=== PATIENT | male | born 1970 | race Caucasian/White ===

== ENCOUNTER 2018-07-15 09:21 | Emergency (ER) | payer MEDICAID ==
[~2018-07-15] VITALS: Ht 182.9 cm; Wt 127.0 kg
[~2018-07-15 09:21] MED LIST: DIAZ5TAB PO; HYDR-4353 PO; IBUP-1574 PO; NO HOME MEDS
[2018-07-15] MEDS ORDERED: HYDR-4353 PO (10:16)
[2018-07-15 10:50] VITALS: BP 158/102
== END 2018-07-15 10:40 | disposition home or self-care (01) ==
LOC: ER 09:22
DX: M54.41 Lumbago with sciatica, right side (principal); G89.29 Other chronic pain; F12.90 Cannabis use, unspecified, uncomplicated; Z79.899 Other long term (current) drug therapy; Z98.890 Other specified postprocedural states
CPT/HCPCS: 99283

== ENCOUNTER 2020-01-28 09:51 | Emergency (ER) | payer MEDICAID, OTHER ==
[~2020-01-28] VITALS: Ht 182.9 cm; Wt 109.0 kg
[2020-01-28 10:01] VITALS: BP 155/108
[2020-01-28] MEDS ORDERED: HYDROcodone/acetaminophen 5mg/325mg tablet PO ONE (10:25)
[2020-01-28] MEDS ORDERED: ondansetron 4mg rapidly disintigrating tab PO ONE (10:25)
[2020-01-28] MEDS ORDERED: CYCL-1 PO (10:53)
[2020-01-28] MEDS ORDERED: IBUP-1984 PO (10:53)
== END 2020-01-28 11:38 | disposition home or self-care (01) ==
LOC: ER 09:51
DX: M25.551 Pain in right hip (principal); M79.651 Pain in right thigh; G89.29 Other chronic pain; F12.90 Cannabis use, unspecified, uncomplicated; Z98.890 Other specified postprocedural states; Z72.89 Other problems related to lifestyle; Z79.899 Other long term (current) drug therapy
CPT/HCPCS: 73502; 99284

== ENCOUNTER 2020-07-18 14:38 | Emergency (ER) | payer MEDICAID ==
[~2020-07-18] VITALS: Ht 182.9 cm; Wt 130.0 kg
[~2020-07-18 14:38] MED LIST changes: +CYCL-1 PO
[2020-07-18 14:53] VITALS: BP 137/112
[2020-07-19] MEDS ORDERED: NAPR-56 PO (10:44)
[2020-07-19] MEDS ORDERED: CYCL-1 PO (10:44)
== END 2020-07-18 17:52 | disposition home or self-care (01) ==
LOC: ER 14:39
DX: S29.012A Strain of muscle and tendon of back wall of thorax, initial encounter (principal); K43.9 Ventral hernia without obstruction or gangrene; G89.29 Other chronic pain; F12.90 Cannabis use, unspecified, uncomplicated; Z72.89 Other problems related to lifestyle; Z98.890 Other specified postprocedural states; Z79.899 Other long term (current) drug therapy; X58.XXXA Exposure to other specified factors, initial encounter; Y93.89 Activity, other specified; Y92.89 Other specified places as the place of occurrence of the external cause; Y99.8 Other external cause status
CPT/HCPCS: 72074; 76705; 99284

== ENCOUNTER 2020-07-19 09:55 | Emergency (ER) | payer MEDICAID ==
[~2020-07-19] VITALS: Ht 182.9 cm; Wt 130.0 kg
[2020-07-19] MEDS ORDERED: ketorolac trometh inj. 60 MG/2 ML VIAL IM ONE (10:15)
[2020-07-19] MEDS ORDERED: oxyCODONE/APAP 10/325mg tablet PO ONE (10:15)
[2020-07-19] MEDS ORDERED: orphenadrine citrate 60mg/2ml inj. IM ONE (10:15)
[2020-07-19] MEDS ORDERED: NAPR-56 PO (10:44)
[2020-07-19] MEDS ORDERED: CYCL-1 PO (10:44)
[2020-07-19 11:29] VITALS: BP 143/105
== END 2020-07-19 11:31 | disposition home or self-care (01) ==
LOC: ER 09:56
DX: S33.5XXA Sprain of ligaments of lumbar spine, initial encounter (principal); G89.29 Other chronic pain; Z72.89 Other problems related to lifestyle; Z79.899 Other long term (current) drug therapy; X50.0XXA Overexertion from strenuous movement or load, initial encounter; Y93.89 Activity, other specified; Y92.89 Other specified places as the place of occurrence of the external cause; Y99.8 Other external cause status; F12.90 Cannabis use, unspecified, uncomplicated
CPT/HCPCS: 96372; 99284; J1885; J2360

== ENCOUNTER 2020-10-12 12:05 | Emergency (ER) | payer MEDICAID ==
[~2020-10-12] VITALS: Ht 182.9 cm; Wt 130.0 kg
[2020-10-12 12:39] LABS: BASOPHILS % (AUTO) 0.9 % (0-1); EOSINOPHILS % (AUTO) 0.8 % (0-6); HEMATOCRIT 50.7 % (42.0-52.0); HEMOGLOBIN 17.4 g/dl (14.0-17.9); LYMPHOCYTES # (AUTO) 1.4 X10'3 (1.1-4.8); LYMPHOCYTES % (AUTO) 30.6 % (21-51); MEAN CORPUSCULAR HEMOGLOBIN 33.4 PG (27.0-31.0); MEAN CORPUSCULAR HGB CONC 34.2 g/dL (33.0-36.5); MEAN CORPUSCULAR VOLUME 97.6 FL (78-98); MEAN PLATELET VOLUME 7.2 FL (7.4-10.4); MONOCYTES # (AUTO) 0.5 X10'3 (0-0.9); MONOCYTES % (AUTO) 11.2 % (2-12); NEUTROPHILS # (AUTO) 2.7 X10'3 (1.8-7.7); NEUTROPHILS % (AUTO) 56.5 % (42-75); PLATELET COUNT 273 X10'3 (140-440); RED CELL DISTRIBUTION WIDTH 12.6 % (11.5-14.5); WHITE BLOOD COUNT 4.7 X10'3 (4.5-11.0)
[2020-10-12 13:00] LABS: ALANINE AMINOTRANSFERASE 315 U/L (12-78); ALBUMIN 3.4 G/DL (3.4-5.0); ALBUMIN/GLOBULIN RATIO 0.9 (1.1-1.5); ALKALINE PHOSPHATASE 79 IU/L (46-116); ANION GAP 12 (8-16); ASPARTATE AMINO TRANSFERASE 407 U/L (10-37); BILIRUBIN,TOTAL 0.7 MG/DL (0.1-1.0); BLOOD UREA NITROGEN 12 MG/DL (7-18); BUN/CREATININE RATIO 13.6 (5.4-32.0); CALCIUM 8.6 MG/DL (8.5-10.1); CHLORIDE 103 MMOL/L (99-107); CREATININE 0.88 MG/DL (0.60-1.10); GLUCOSE 111 MG/DL (70-104); SODIUM 138 MMOL/L (135-145); TOTAL CARBON DIOXIDE 23.1 MMOL/L (24-32); TOTAL PROTEIN 7.2 G/DL (6.4-8.2); eGFR > 90 ML/MIN
[2020-10-12] MEDS ORDERED: albuterol 2.5 MG/3 ML nebule NEB ONE (13:30)
[2020-10-12] MEDS ORDERED: albuterol 2.5 MG/3 ML nebule ONE (13:50)
[2020-10-12 14:43] VITALS: BP 161/113
== END 2020-10-12 14:45 | disposition home or self-care (01) ==
LOC: ER 12:05
DX: R74.8 Abnormal levels of other serum enzymes (principal); R06.02 Shortness of breath; F10.10 Alcohol abuse, uncomplicated; G89.29 Other chronic pain; F12.90 Cannabis use, unspecified, uncomplicated; Z98.890 Other specified postprocedural states; Z79.899 Other long term (current) drug therapy; Y90.9 Presence of alcohol in blood, level not specified
CPT/HCPCS: 36415; 71045; 80053; 83880; 84484; 85025; 93005; 94640; 94760; 99285

== ENCOUNTER 2020-12-29 12:58 | Emergency (ER) | payer MEDICAID ==
--- NOTE | 2020-12-29 14:10 | NUR ---
Second call, not in lobby
--- NOTE | 2020-12-29 14:26 | NUR ---
Third call not in lobby
== END 2020-12-29 17:49 | disposition left against medical advice (07) ==
LOC: ER 12:59
DX: R11.10 Vomiting, unspecified (principal); Z53.21 Procedure and treatment not carried out due to patient leaving prior to being seen by health care provider

== ENCOUNTER 2021-12-07 16:58 | Emergency (ER) | payer MEDICAID ==
[~2021-12-07] VITALS: Ht 182.9 cm; Wt 113.6 kg
[2021-12-07 17:38] LABS: BASOPHILS % (AUTO) 0.5 % (0-1); EOSINOPHILS # (AUTO) 0.1 X10'3 (0-0.9); EOSINOPHILS % (AUTO) 0.8 % (0-6); HEMATOCRIT 43.6 % (42.0-52.0); HEMOGLOBIN 14.9 g/dl (14.0-17.9); LYMPHOCYTES # (AUTO) 1.5 X10'3 (1.1-4.8); LYMPHOCYTES % (AUTO) 17.5 % (21-51); MEAN CORPUSCULAR HGB CONC 34.2 g/dL (33.0-36.5); MEAN CORPUSCULAR VOLUME 99.6 FL (78-98); MONOCYTES # (AUTO) 0.9 X10'3 (0-0.9); MONOCYTES % (AUTO) 10.9 % (2-12); NEUTROPHILS % (AUTO) 70.3 % (42-75); PLATELET COUNT 166 X10'3 (140-440); RED BLOOD COUNT 4.38 X10'6 (4.70-6.10); RED CELL DISTRIBUTION WIDTH 12.7 % (11.5-14.5); WHITE BLOOD COUNT 8.5 X10'3 (4.5-11.0)
[2021-12-07 17:57] LABS: ALANINE AMINOTRANSFERASE 72 U/L (12-78); ALBUMIN 3.7 G/DL (3.4-5.0); ALKALINE PHOSPHATASE 85 IU/L (46-116); ANION GAP 14 (8-16); ASPARTATE AMINO TRANSFERASE 122 U/L (10-37); BILIRUBIN,TOTAL 1.6 MG/DL (0.1-1.0); BLOOD UREA NITROGEN 5 MG/DL (7-18); BUN/CREATININE RATIO 6.8 (5.4-32.0); CALCIUM 8.5 MG/DL (8.5-10.1); CHLORIDE 99 MMOL/L (99-107); CREATININE 0.73 MG/DL (0.60-1.10); GLUCOSE 109 MG/DL (70-104); SODIUM 136 MMOL/L (135-145); TOTAL PROTEIN 7.5 G/DL (6.4-8.2); eGFR > 90 ML/MIN
[2021-12-07 18:00] LABS: POTASSIUM 2.9 MMOL/L (3.5-5.1)
[2021-12-07 18:04] VITALS: BP 136/90
[2021-12-07] MEDS ORDERED: albuterol 2.5 MG/3 ML nebule NEB ONE (18:20)
[2021-12-07] MEDS ORDERED: ipratropium/albuterol 3ml nebule NEB ONE (18:20)
[2021-12-07] MEDS ORDERED: ringers solution, lactated 1000ml IV soln IV ONE (18:50)
[2021-12-07] MEDS ORDERED: POTASSIUM BICARB 20meq eff tab 20 MEQ TABLET.EFF PO ONE (18:50)
--- NOTE | 2021-12-07 19:18 | NUR ---
paged resp for breathing tx.
== END 2021-12-07 21:09 | disposition home or self-care (01) ==
LOC: ER 16:59
DX: E87.6 Hypokalemia (principal); Z20.822 Contact with and (suspected) exposure to COVID-19; J11.1 Influenza due to unidentified influenza virus with other respiratory manifestations; G89.29 Other chronic pain; F17.200 Nicotine dependence, unspecified, uncomplicated; F12.90 Cannabis use, unspecified, uncomplicated; Z72.89 Other problems related to lifestyle; Z79.899 Other long term (current) drug therapy
CPT/HCPCS: 36415; 71046; 80053; 83605; 83880; 85025; 87040; 87502; 87503; 87635; 93005; 94640; 99285; C9803; J7120; 94760

== ENCOUNTER 2022-10-09 01:21 | Emergency (ER) | payer MEDICAID ==
[~2022-10-09] VITALS: Ht 182.9 cm; Wt 111.8 kg
--- NOTE | 2022-10-09 01:56 | NUR ---
Dr zaldivar at bedside
[2022-10-09] MEDS ORDERED: pantoprazole 40mg IV 80 MG in normal saline 100ml IV soln 100 ML IV ONE (02:05)
[2022-10-09] MEDS ORDERED: normal saline 1000ml 1,000 ML IV ONE (02:05)
--- NOTE | 2022-10-09 02:37 | NUR ---
blood specimens collected via 18g piv labeled at bedside with pt's verbal verify to correct name and .
[2022-10-09] MEDS: pantoprazole 40MG/NS 100ML BAG 100 ML IV SCH ×2 (02:44→03:08)
[2022-10-09 02:54] LABS: HEMOGLOBIN 12.7 g/dl (14.0-17.9); MEAN CORPUSCULAR HGB CONC 34.4 g/dL (33.0-36.5); WHITE BLOOD COUNT 4.6 X10'3 (4.5-11.0)
[2022-10-09 02:56] LABS: BASOPHILS # (AUTO) 0.1 X10'3 (0-0.2); BASOPHILS % (AUTO) 1.2 % (0-1); EOSINOPHILS # (AUTO) 0.1 X10'3 (0-0.9); EOSINOPHILS % (AUTO) 2.5 % (0-6); HEMATOCRIT 37.1 % (42.0-52.0); LYMPHOCYTES # (AUTO) 1.8 X10'3 (1.1-4.8); LYMPHOCYTES % (AUTO) 39.9 % (21-51); MEAN CORPUSCULAR VOLUME 116.5 FL (78-98); MEAN PLATELET VOLUME 7.8 FL (7.4-10.4); MONOCYTES # (AUTO) 0.5 X10'3 (0-0.9); MONOCYTES % (AUTO) 11.4 % (2-12); NEUTROPHILS # (AUTO) 2.1 X10'3 (1.8-7.7); PLATELET COUNT 120 X10'3 (140-440); RED BLOOD COUNT 3.18 X10'6 (4.70-6.10); RED CELL DISTRIBUTION WIDTH 18.6 % (11.5-14.5)
[2022-10-09 03:01] LABS: APTT 30 SECONDS (22-32)
[2022-10-09 03:07] LABS: ALANINE AMINOTRANSFERASE 49 U/L (12-78); ALBUMIN 3.4 G/DL (3.4-5.0); ALBUMIN/GLOBULIN RATIO 0.9 (1.1-1.5); ALKALINE PHOSPHATASE 114 IU/L (46-116); ANION GAP 12 (8-16); ASPARTATE AMINO TRANSFERASE 159 U/L (10-37); BILIRUBIN,TOTAL 0.4 MG/DL (0.1-1.0); BLOOD UREA NITROGEN 6 MG/DL (7-18); BUN/CREATININE RATIO 8.7 (10.0-20.0); CALCIUM 8.7 MG/DL (8.5-10.1); CHLORIDE 103 MMOL/L (99-107); CREATININE 0.69 MG/DL (0.60-1.10); GLUCOSE 111 MG/DL (70-104); LIPASE 162 U/L (73-393); SODIUM 145 MMOL/L (135-145); eGFR > 90 ML/MIN
[2022-10-09 03:22] LABS: ETHANOL 0.313 GM/DL (0.0-0.010)
[2022-10-09 03:25] LABS: POTASSIUM 2.8 MMOL/L (3.5-5.1)
[2022-10-09] MEDS ORDERED: POTASSIUM BICARB 20meq eff tab 20 MEQ TABLET.EFF PO ONE (03:30)
[2022-10-09 03:43] VITALS: BP 119/79
--- NOTE | 2022-10-09 04:19 | NUR ---
PT VOIDED 600ML CLEAR YELLOW URINE SPECIMEN COLLECTED, LABELED AT BEDSIDE WITH PT'S VERBAL VERIFICATION TO CORRECT NAME AND . SPECIMEN TAKEN TO LAB BY KATJA FABIAN.
[2022-10-09 04:37] LABS: CLARITY,URINE CLEAR (Clear); COLOR,URINE YELLOW (Yellow); GLUCOSE, URINE NEGATIVE (Neg); KETONES,URINE NEGATIVE (Neg); LEUKOCYTE ESTERASE ,URINE NEGATIVE (Neg); OCCULT BLOOD,URINE NEGATIVE (Neg); PROTEIN,URINE NEGATIVE (Neg)
[2022-10-09 04:50] LABS: NITRITES, URINE NEGATIVE (Neg); UA COLLECTION TYPE NON-SPECIFIED
[2022-10-09] MEDS ORDERED: ONDA8TAB13 PO (05:04)
[2022-10-09] MEDS ORDERED: PANT-47 PO (05:04)
[2022-10-09] MEDS ORDERED: POTA-207 PO (05:10)
[2022-10-09 05:42] LABS: ANISOCYTOSIS 2+; PLATELET ESTIMATE DECREASED
== END 2022-10-09 05:32 | disposition home or self-care (01) ==
LOC: ER 01:21
DX: K29.70 Gastritis, unspecified, without bleeding (principal); G89.29 Other chronic pain; M54.9 Dorsalgia, unspecified; F12.10 Cannabis abuse, uncomplicated; Z79.899 Other long term (current) drug therapy; Z79.1 Long term (current) use of non-steroidal anti-inflammatories (NSAID); Z79.2 Long term (current) use of antibiotics
CPT/HCPCS: 36415; 71045; 74176; 80053; 80320; 81003; 83690; 84484; 85008; 85025; 85610; 85730; 86885; 86900; 86901; 93005; 96365; 96366; 99285; C9113; J7030

== ENCOUNTER 2022-11-05 17:59 | Inpatient (IN) | payer MEDICAID ==
[~2022-11-05] VITALS: Ht 182.9 cm; Wt 113.6 kg
[~2022-11-05 17:59] MED LIST changes: +ONDA8TAB13 PO; +PANT-47 PO; +POTA-207 PO
[2022-11-05] MEDS ORDERED: normal saline 1000ML IV soln IVB ONE ×2 (18:45→19:50)
[2022-11-05 19:17] LABS: BASOPHILS # (AUTO) 0.1 X10'3 (0-0.2); BASOPHILS % (AUTO) 1.5 % (0-1); EOSINOPHILS # (AUTO) 0.1 X10'3 (0-0.9); EOSINOPHILS % (AUTO) 2.2 % (0-6); HEMATOCRIT 39.1 % (42.0-52.0); HEMOGLOBIN 13.8 g/dl (14.0-17.9); LYMPHOCYTES # (AUTO) 1.5 X10'3 (1.1-4.8); LYMPHOCYTES % (AUTO) 39.8 % (21-51); MEAN CORPUSCULAR HGB CONC 35.1 g/dL (33.0-36.5); MEAN CORPUSCULAR VOLUME 116.7 FL (78-98); MONOCYTES # (AUTO) 0.5 X10'3 (0-0.9); NEUTROPHILS # (AUTO) 1.6 X10'3 (1.8-7.7); NEUTROPHILS % (AUTO) 43.5 % (42-75); PLATELET COUNT 65 X10'3 (140-440); RED BLOOD COUNT 3.35 X10'6 (4.70-6.10); RED CELL DISTRIBUTION WIDTH 15.6 % (11.5-14.5); WHITE BLOOD COUNT 3.7 X10'3 (4.5-11.0)
[2022-11-05 19:36] LABS: ALANINE AMINOTRANSFERASE 86 U/L (12-78); ALBUMIN 3.4 G/DL (3.4-5.0); ALBUMIN/GLOBULIN RATIO 0.9 (1.1-1.5); ALKALINE PHOSPHATASE 144 IU/L (46-116); ANION GAP 13 (8-16); ASPARTATE AMINO TRANSFERASE 219 U/L (10-37); BILIRUBIN,TOTAL 0.5 MG/DL (0.1-1.0); BLOOD UREA NITROGEN 7 MG/DL (7-18); BUN/CREATININE RATIO 9.9 (10.0-20.0); CALCIUM 8.8 MG/DL (8.5-10.1); CHLORIDE 101 MMOL/L (99-107); CREATININE 0.71 MG/DL (0.60-1.10); ETHANOL 0.274 GM/DL (0.0-0.010); GLUCOSE 116 MG/DL (70-104); SODIUM 141 MMOL/L (135-145); TOTAL CARBON DIOXIDE 26.8 MMOL/L (24-32); TOTAL PROTEIN 7.1 G/DL (6.4-8.2); eGFR > 90 ML/MIN
[2022-11-05] MEDS ORDERED: HYDROcodone/acetaminophen 5mg/325mg tablet PO ONE (19:40)
[2022-11-05 19:42] LABS: POTASSIUM 2.7 MMOL/L (3.5-5.1)
[2022-11-05] MEDS ORDERED: potassium Cl 20 mEq SR tablet PO ONE (19:45)
[2022-11-05] MEDS ORDERED: magnesium 2GM in 50ml NS 50 ML IV ONE (19:45)
[2022-11-05] MEDS ORDERED: thiamine 100mg tablet PO ONE (19:45)
[2022-11-05 19:58] LABS: ANISOCYTOSIS FEW; LARGE PLATELETS MODERATE; PLATELET ESTIMATE DECREASED
[2022-11-05 20:19] LABS: CLARITY,URINE CLEAR (Clear); COLOR,URINE YELLOW (Yellow); GLUCOSE, URINE NEGATIVE (Neg); KETONES,URINE NEGATIVE (Neg); LEUKOCYTE ESTERASE ,URINE NEGATIVE (Neg); NITRITES, URINE NEGATIVE (Neg); OCCULT BLOOD,URINE NEGATIVE (Neg); PROTEIN,URINE NEGATIVE (Neg); UROBILINOGEN,URINE 0.2 E.U/dL (0.2-1.0)
[2022-11-05 20:24] LABS: UA COLLECTION TYPE CLN CATCH MIDSTREAM
[2022-11-05 20:28] LABS: BACTERIA,URINE FEW /HPF (Neg); RBC,URINE 0-2 /HPF (0-2); WBC,URINE 0-4 /HPF (0-4)
[2022-11-05 20:29] LABS: MUCUS STRANDS FEW /LPF (Neg); SQUAMOUS EPITHELIAL CELL,UR FEW /LPF (FEW); URINE AMPHETAMINE SCREEN NEGATIVE (Neg); URINE BARBITUATE SCREEN NEGATIVE (Neg); URINE BENZODIAZEPINES SCREEN NEGATIVE (Neg); URINE CANNABINOID SCREEN POSITIVE (Neg); URINE COCAINE SCREEN NEGATIVE (Neg); URINE METHADONE SCREEN NEGATIVE (Neg); URINE OPIATE SCREEN NEGATIVE (Neg); URINE PHENCYCLIDINE SCREEN NEGATIVE (Neg); WBC CLUMPS,URINE MODERATE /HPF (NEGATIVE)
[2022-11-05 20:31] LABS: HYALINE CASTS 0-3 /LPF (NEGATIVE)
[2022-11-05] MEDS ORDERED: temazepam 15mg capsule PO PRN (21:00)
[2022-11-05] MEDS ORDERED: morphine 4 MG/ML inj SYRINge IV ONE (21:55)
[2022-11-05] MEDS ORDERED: cephalexin 500mg capsule PO ONE (22:25)
[2022-11-05] MEDS ORDERED: ondansetron/PF 4mg/2ml inj IV PRN (23:00)
[2022-11-05] MEDS ORDERED: acetaminophen 650mg rectal suppository RC PRN (23:00)
[2022-11-05] MEDS ORDERED: magnesium 2GM in 50ml NS 50 ML IV PRN (23:00)
[2022-11-05] MEDS ORDERED: dextrose 50%-water 50ml dispensing syringe IV PRN (23:00)
[2022-11-05] MEDS ORDERED: mag hydrox/Alum hydrox/simeth 30ml oral suspension PO PRN (23:00)
[2022-11-05] MEDS ORDERED: diphenhydrAMINE 50 mg/ml inj IV PRN (23:00)
[2022-11-05] MEDS ORDERED: haloperidol lactate 5mg/ml inj IM PRN (23:00)
[2022-11-05] MEDS ORDERED: haloperidol 5mg tablet PO PRN (23:00)
[2022-11-05] MEDS ORDERED: potassium Cl 20 mEq SR tablet PO PRN (23:00)
[2022-11-05] MEDS ORDERED: magnesium 4gm in 100ml NS 100 ML IV PRN (23:00)
[2022-11-05] MEDS ORDERED: metoclopramide 5 mg/ml inj IV PRN (23:00)
[2022-11-05] MEDS ORDERED: acetaminophen 325mg tablet PO PRN ×2 (23:00)
[2022-11-05] MEDS ORDERED: bisacodyl 10mg suppository rectal RC PRN (23:00)
[2022-11-05] MEDS ORDERED: magnesium hydroxide 30ml (MOM) UD suspension PO PRN (23:00)
[2022-11-05] MEDS ORDERED: morphine 2 MG/ML inj. syringe IV PRN (23:00)
[2022-11-05] MEDS ORDERED: diphenhydrAMINE 25mg capsule PO PRN (23:00)
[2022-11-05] MEDS ORDERED: potassium Cl 40MEQ/1/2NS 520ml 520 ML IV PRN (23:00)
[2022-11-05 23:17] LABS: CREATINE KINASE 130 U/L (39-308); LIPASE 191 U/L (73-393); MAGNESIUM 1.3 MG/DL (1.5-2.4); PHOSPHORUS 5.2 MG/DL (2.3-4.5)
[2022-11-05 23:35] LABS: HEMOGLOBIN A1C 4.5 % (4.5-6.2)
[2022-11-05 23:47] LABS: APTT 31 SECONDS (22-32); D-DIMER 0.36 MG/L FEU (0-0.50)
[2022-11-06] MEDS: dextrose 5%-1/2 normal saline 1,000 ML IV SCH ×3 (00:43→20:49)
[2022-11-06 01:45] VITALS: BP 134/94
[2022-11-06] MEDS: HYDROcodone/acetaminophen 5mg/325mg tablet PO PRN ×4 (02:05→19:25)
[2022-11-06] MEDS: LORazepam 2 mg/ml vial IV PRN ×5 (02:06→22:17)
[2022-11-06 07:00] VITALS: BP 140/102
--- NOTE | 2022-11-06 07:07 | NUR ---
Patient in room PCU 3016B. I have received report from BEV BURKETT and had the opportunity to ask questions and assume patient care.
[2022-11-06] MEDS: multivitamins, therapeutics tablet PO SCH (07:24)
[2022-11-06] MEDS: nicotine 21mg patch - 24 hr TD SCH (07:24)
[2022-11-06] MEDS: docusate sod 100mg capsule PO SCH ×2 (07:24→19:38)
[2022-11-06] MEDS: thiamine 100mg/ml 2ml inj. IV SCH ×3 (07:24→20:54)
[2022-11-06] MEDS: pantoprazole 40mg Tablet.DR PO SCH (07:24)
[2022-11-06 07:31] LABS: BASOPHILS % (AUTO) 0.9 % (0-1); EOSINOPHILS # (AUTO) 0.1 X10'3 (0-0.9); HEMATOCRIT 35.2 % (42.0-52.0); HEMOGLOBIN 11.9 g/dl (14.0-17.9); LYMPHOCYTES % (AUTO) 26.4 % (21-51); MEAN CORPUSCULAR HEMOGLOBIN 40.3 PG (27.0-31.0); MEAN CORPUSCULAR HGB CONC 33.9 g/dL (33.0-36.5); MEAN CORPUSCULAR VOLUME 119.1 FL (78-98); MONOCYTES # (AUTO) 0.4 X10'3 (0-0.9); MONOCYTES % (AUTO) 10.3 % (2-12); NEUTROPHILS # (AUTO) 2.3 X10'3 (1.8-7.7); NEUTROPHILS % (AUTO) 60.4 % (42-75); PLATELET COUNT 52 X10'3 (140-440); RED BLOOD COUNT 2.95 X10'6 (4.70-6.10); RED CELL DISTRIBUTION WIDTH 15.2 % (11.5-14.5); WHITE BLOOD COUNT 3.8 X10'3 (4.5-11.0)
[2022-11-06 07:37] LABS: ALANINE AMINOTRANSFERASE 78 U/L (12-78); ALBUMIN 2.9 G/DL (3.4-5.0); ALBUMIN/GLOBULIN RATIO 0.9 (1.1-1.5); ALKALINE PHOSPHATASE 121 IU/L (46-116); ANION GAP 13 (8-16); ASPARTATE AMINO TRANSFERASE 215 U/L (10-37); BILIRUBIN,TOTAL 0.6 MG/DL (0.1-1.0); BLOOD UREA NITROGEN 7 MG/DL (7-18); BUN/CREATININE RATIO 13.7 (10.0-20.0); CALCIUM 8.2 MG/DL (8.5-10.1); CHLORIDE 104 MMOL/L (99-107); CHOL/HDL RATIO 1.9 (0.00-4.99); CHOLESTEROL 141 MG/DL (0-200); CREATININE 0.51 MG/DL (0.60-1.10); GLUCOSE 90 MG/DL (70-104); HDL CHOLESTEROL 76 MG/DL (35-60); LDL CHOLESTEROL 47 MG/DL (50-100); MAGNESIUM 1.4 MG/DL (1.5-2.4); POTASSIUM 3.3 MMOL/L (3.5-5.1); SODIUM 141 MMOL/L (135-145); TOTAL CARBON DIOXIDE 24.1 MMOL/L (24-32); TRIGLYCERIDES 73 MG/DL (20-135); eGFR > 90 ML/MIN
[2022-11-06] MEDS: K and/or MAG REPLACEMENT MC SCH ×2 (08:00→20:00)
[2022-11-06] MEDS: folic acid 1mg/0.2ml inj IV SCH (08:23)
[2022-11-06] MEDS: potassium Cl 20 mEq SR tablet PO PRN ×3 (08:30→19:39)
[2022-11-06] MEDS: magnesium Cl slow-release 64mg tablet PO PRN ×2 (08:31→19:38)
--- NOTE | 2022-11-06 11:05 | NUR ---
PAGER ID: [phone] MESSAGE: DEVIN ON [email or web address], CAN I MOVE [phone] TO OTHO NEURO, PLEASE CALL ME YENNIFER VÁZQUEZ (75 character message out of a maximum of 240) CLOSE [X] SEND ANOTHER PAGE Thank you for visiting [facility] promotional table spacer promotional table spacer
[2022-11-06] MEDS ORDERED: NO HOME MEDS (12:28)
--- NOTE | 2022-11-06 12:40 | NUR ---
received report from Shaina on PCU. Patient being transferred from to ortho floor 4 in room 4016.
--- NOTE | 2022-11-06 12:40 | NUR ---
Problems reprioritized. Patient report given, questions answered & plan of care reviewed with MATT PORTER ON ORTHO.
[2022-11-06 14:48] VITALS: BP 131/90
--- NOTE | 2022-11-06 15:17 | NUR ---
PATIENT RESTING COMFORTABLY ORIENTED TO ROOM MINIMAL S/SX OF ETOH WITHDRAW. CURRENTLY SLEEPING WITH IV FLUIDS RUNNING. DENIES PAIN AT THIS TIME. VSS. RR EVEN AND UNLABORED. ALL SAFETY MEASURES IN PLACE AND CALL LIGHT IN REACH. WILL CONTINUE TO MONITOR.
[2022-11-06 18:30] VITALS: BP 151/100
[2022-11-06 22:00] VITALS: BP 149/95
[2022-11-07] MEDS: LORazepam 2 mg/ml vial IV PRN ×3 (00:35→07:20)
[2022-11-07] MEDS: HYDROcodone/acetaminophen 5mg/325mg tablet PO PRN ×2 (00:39→05:40)
[2022-11-07 04:42] LABS: EOSINOPHILS # (AUTO) 0.1 X10'3 (0-0.9); EOSINOPHILS % (AUTO) 2.6 % (0-6); HEMATOCRIT 33.9 % (42.0-52.0); HEMOGLOBIN 11.6 g/dl (14.0-17.9); LYMPHOCYTES # (AUTO) 1.1 X10'3 (1.1-4.8); LYMPHOCYTES % (AUTO) 36.4 % (21-51); MEAN CORPUSCULAR HEMOGLOBIN 40.7 PG (27.0-31.0); MEAN CORPUSCULAR HGB CONC 34.2 g/dL (33.0-36.5); MEAN CORPUSCULAR VOLUME 119.1 FL (78-98); MEAN PLATELET VOLUME 9.1 FL (7.4-10.4); MONOCYTES # (AUTO) 0.5 X10'3 (0-0.9); MONOCYTES % (AUTO) 16.3 % (2-12); NEUTROPHILS # (AUTO) 1.4 X10'3 (1.8-7.7); NEUTROPHILS % (AUTO) 43.7 % (42-75); PLATELET COUNT 59 X10'3 (140-440); RED BLOOD COUNT 2.85 X10'6 (4.70-6.10); RED CELL DISTRIBUTION WIDTH 15.6 % (11.5-14.5); WHITE BLOOD COUNT 3.1 X10'3 (4.5-11.0)
[2022-11-07 04:44] LABS: ALANINE AMINOTRANSFERASE 76 U/L (12-78); ALBUMIN 2.9 G/DL (3.4-5.0); ALBUMIN/GLOBULIN RATIO 0.9 (1.1-1.5); ALKALINE PHOSPHATASE 126 IU/L (46-116); ANION GAP 8 (8-16); ASPARTATE AMINO TRANSFERASE 194 U/L (10-37); BILIRUBIN,TOTAL 1.2 MG/DL (0.1-1.0); BLOOD UREA NITROGEN 3 MG/DL (7-18); BUN/CREATININE RATIO 5.3 (10.0-20.0); CALCIUM 7.5 MG/DL (8.5-10.1); CHLORIDE 104 MMOL/L (99-107); CREATININE 0.57 MG/DL (0.60-1.10); GLUCOSE 88 MG/DL (70-104); MAGNESIUM 1.3 MG/DL (1.5-2.4); SODIUM 138 MMOL/L (135-145); TOTAL CARBON DIOXIDE 26.4 MMOL/L (24-32); eGFR > 90 ML/MIN
[2022-11-07 04:46] LABS: POTASSIUM 3.9 MMOL/L (3.5-5.1)
[2022-11-07] MEDS: dextrose 5%-1/2 normal saline 1,000 ML IV SCH (05:30)
[2022-11-07 06:00] VITALS: BP 142/95
[2022-11-07 06:00] LABS: TOTAL CELLS COUNTED 100
[2022-11-07 06:01] LABS: PLATELET ESTIMATE DECREASED
--- NOTE | 2022-11-07 06:05 | NUR ---
received report from rojelio mooney
--- NOTE | 2022-11-07 06:24 | NUR ---
Problems reprioritized. Patient report given, questions answered & plan of care reviewed with Vernell. Addendum: 11/07/22 at 0625 by Blaise Fu RN Amended: Links added.
[2022-11-07] MEDS: nicotine 21mg patch - 24 hr TD SCH (07:05)
[2022-11-07] MEDS: pantoprazole 40mg Tablet.DR PO SCH (07:06)
[2022-11-07] MEDS: magnesium Cl slow-release 64mg tablet PO PRN (07:07)
[2022-11-07] MEDS: multivitamins, therapeutics tablet PO SCH (07:07)
[2022-11-07] MEDS: docusate sod 100mg capsule PO SCH (07:07)
[2022-11-07] MEDS: folic acid 1mg/0.2ml inj IV SCH (07:21)
[2022-11-07] MEDS: thiamine 100mg/ml 2ml inj. IV SCH (07:22)
[2022-11-07] MEDS: K and/or MAG REPLACEMENT MC SCH (07:24)
--- NOTE | 2022-11-07 09:49 | NUR ---
AFTER MUCH VERBAL EDUCATION ABOUT THE IMPORTANCE OF STAYING IN THE HOSPITAL, PT MADE THE DECISION TO GO AMA, IV REMOVED, ALL BELONGINGS WITH PATIENT THEY WALKED OUT, I SENT A PAGE TO MD LETTING THEM KNOW THAT PATIENT CHOSE TO GO AMA
--- NOTE | 2022-11-07 11:09 | NUR ---
Received order for consult. Patient was discharged. Called patient to follow up. No answer, I left message.
[2022-11-07] MEDS ORDERED: LORazepam 2 mg/ml vial IV PRN (23:00)
[2022-11-07] MEDS ORDERED: LORazepam 1 MG tablet PO PRN (23:00)
[2022-11-09] MEDS ORDERED: LORazepam 2 mg/ml vial IV PRN (23:00)
[2022-11-09] MEDS ORDERED: LORazepam 1 MG tablet PO PRN (23:00)
== END 2022-11-07 09:54 | disposition left against medical advice (07) | DRG 384 ==
LOC: ER 18:00 → ED HOLD 23:09 → PCU 3S 11-06 01:45 → ORTHO 4S 11-06 13:45
PROVIDERS: ADMIT Family Medicine; ATTEND Internal Medicine
DX: S40.012A Contusion of left shoulder, initial encounter (principal); D61.818 Other pancytopenia; D69.59 Other secondary thrombocytopenia; F10.239 Alcohol dependence with withdrawal, unspecified; E78.5 Hyperlipidemia, unspecified; E83.42 Hypomagnesemia; E87.6 Hypokalemia; F10.229 Alcohol dependence with intoxication, unspecified; F12.10 Cannabis abuse, uncomplicated; F41.9 Anxiety disorder, unspecified; F51.05 Insomnia due to other mental disorder; G89.4 Chronic pain syndrome; I10 Essential (primary) hypertension; I48.91 Unspecified atrial fibrillation; K21.9 Gastro-esophageal reflux disease without esophagitis; K70.9 Alcoholic liver disease, unspecified; K57.90 Diverticulosis of intestine, part unspecified, without perforation or abscess without bleeding; K76.0 Fatty (change of) liver, not elsewhere classified; Z53.29 Procedure and treatment not carried out because of patient's decision for other reasons; F32.A Depression, unspecified; M19.90 Unspecified osteoarthritis, unspecified site; W18.39XA Other fall on same level, initial encounter; Y93.89 Activity, other specified; Y92.89 Other specified places as the place of occurrence of the external cause; Y99.8 Other external cause status; Z87.442 Personal history of urinary calculi
CPT/HCPCS: 36415; 73030; 76700; 80053; 80061; 80305; 80320; 81001; 82550; 82948; 83036; 83605; 83690; 83735; 83880; 84100; 84443; 84484; 85007; 85008; 85025; 85379; 85610; 85730; 87040; 87081; 87088; 99285; A6258; G0378; J2060; J2270; J3411; J3475; J3490; J7030

== ENCOUNTER 2023-01-22 16:31 | Emergency (ER) | payer MEDICAID ==
[~2023-01-22] VITALS: Ht 182.9 cm; Wt 116.4 kg
[~2023-01-22 16:31] MED LIST changes: -CYCL-1 PO; -DIAZ5TAB PO; -HYDR-4353 PO; -IBUP-1574 PO; -ONDA8TAB13 PO; -PANT-47 PO; -POTA-207 PO
[2023-01-22 16:40] VITALS: TEMP 97.7
[2023-01-22] MEDS ORDERED: normal saline 1000ML IV soln IVB ONE (16:50)
[2023-01-22 17:09] LABS: BASOPHILS # (AUTO) 0.1 X10'3 (0-0.2); EOSINOPHILS # (AUTO) 0.1 X10'3 (0-0.9); EOSINOPHILS % (AUTO) 2.4 % (0-6); HEMATOCRIT 41.6 % (42.0-52.0); HEMOGLOBIN 14.1 g/dl (14.0-17.9); LYMPHOCYTES # (AUTO) 2.6 X10'3 (1.1-4.8); LYMPHOCYTES % (AUTO) 43.2 % (21-51); MEAN CORPUSCULAR HEMOGLOBIN 34.3 PG (27.0-31.0); MEAN CORPUSCULAR VOLUME 101.1 FL (78-98); MEAN PLATELET VOLUME 7.5 FL (7.4-10.4); MONOCYTES # (AUTO) 0.6 X10'3 (0-0.9); MONOCYTES % (AUTO) 10.2 % (2-12); NEUTROPHILS # (AUTO) 2.6 X10'3 (1.8-7.7); NEUTROPHILS % (AUTO) 43.2 % (42-75); PLATELET COUNT 242 X10'3 (140-440); RED BLOOD COUNT 4.12 X10'6 (4.70-6.10); WHITE BLOOD COUNT 5.9 X10'3 (4.5-11.0)
[2023-01-22] MEDS ORDERED: NALO4SPR BOTHNARES (17:25)
[2023-01-22 17:28] LABS: ALANINE AMINOTRANSFERASE 30 U/L (12-78); ALBUMIN 3.3 G/DL (3.4-5.0); ALKALINE PHOSPHATASE 67 IU/L (46-116); ANION GAP 14 (8-16); ASPARTATE AMINO TRANSFERASE 29 U/L (10-37); BILIRUBIN,TOTAL 0.7 MG/DL (0.1-1.0); BLOOD UREA NITROGEN 12 MG/DL (7-18); BUN/CREATININE RATIO 14.6 (10.0-20.0); CHLORIDE 100 MMOL/L (99-107); CREATININE 0.82 MG/DL (0.60-1.10); ETHANOL 0.116 GM/DL (0.0-0.010); GLUCOSE 127 MG/DL (70-104); POTASSIUM 3.4 MMOL/L (3.5-5.1); SODIUM 134 MMOL/L (135-145); TOTAL CARBON DIOXIDE 20.2 MMOL/L (24-32); TOTAL PROTEIN 6.7 G/DL (6.4-8.2); eCRCL 117 ML/MIN; eGFR > 90 ML/MIN
[2023-01-22 17:37] VITALS: BP 126/77; PULSE 86; RESP 16; O2SAT 94
[2023-01-22] MEDS ORDERED: normal saline 1000ml 1,000 ML IV ONE (17:50)
[2023-01-22 19:11] LABS: BILIRUBIN,URINE NEGATIVE (Neg); CLARITY,URINE CLEAR (Clear); COLOR,URINE YELLOW (Yellow); GLUCOSE, URINE NEGATIVE (Neg); KETONES,URINE NEGATIVE (Neg); LEUKOCYTE ESTERASE ,URINE NEGATIVE (Neg); NITRITES, URINE NEGATIVE (Neg); OCCULT BLOOD,URINE NEGATIVE (Neg); PROTEIN,URINE NEGATIVE (Neg); UROBILINOGEN,URINE 0.2 E.U/dL (0.2-1.0)
[2023-01-22 19:17] LABS: URINE AMPHETAMINE SCREEN NEGATIVE (Neg); URINE BARBITUATE SCREEN NEGATIVE (Neg); URINE BENZODIAZEPINES SCREEN NEGATIVE (Neg); URINE CANNABINOID SCREEN POSITIVE (Neg); URINE COCAINE SCREEN NEGATIVE (Neg); URINE METHADONE SCREEN NEGATIVE (Neg); URINE OPIATE SCREEN NEGATIVE (Neg); URINE PHENCYCLIDINE SCREEN NEGATIVE (Neg)
[2023-01-22 19:34] LABS: UA COLLECTION TYPE CLN CATCH MIDSTREAM
== END 2023-01-22 20:10 | disposition home or self-care (01) ==
LOC: ER 16:31
DX: T40.601A Poisoning by unspecified narcotics, accidental (unintentional), initial encounter (principal); F12.90 Cannabis use, unspecified, uncomplicated; Z79.899 Other long term (current) drug therapy; Y92.89 Other specified places as the place of occurrence of the external cause
CPT/HCPCS: 36415; 80053; 80305; 80320; 81003; 85025; 93005; 99284; J7030; 99291

== ENCOUNTER 2023-12-19 07:42 | Emergency (ER) | payer MEDICAID ==
[~2023-12-19] VITALS: Ht 182.9 cm; Wt 114.2 kg
[~2023-12-19 07:42] MED LIST changes: +NALO4SPR BOTHNARES
[2023-12-19 07:48] VITALS: TEMP 98
[2023-12-19] MEDS ORDERED: ondansetron 4mg rapidly disintigrating tab PO ONE (08:25)
[2023-12-19 08:47] LABS: BASOPHILS % (AUTO) 0.9 % (0-1); EOSINOPHILS # (AUTO) 0.1 X10'3 (0-0.9); EOSINOPHILS % (AUTO) 1.6 % (0-6); HEMATOCRIT 42.3 % (42.0-52.0); HEMOGLOBIN 14.5 g/dl (14.0-17.9); LYMPHOCYTES # (AUTO) 1.8 X10'3 (1.1-4.8); LYMPHOCYTES % (AUTO) 34.7 % (21-51); MEAN CORPUSCULAR HEMOGLOBIN 34.3 PG (27.0-31.0); MEAN CORPUSCULAR HGB CONC 34.2 g/dL (33.0-36.5); MEAN CORPUSCULAR VOLUME 100.4 FL (78-98); MEAN PLATELET VOLUME 7.6 FL (7.4-10.4); MONOCYTES # (AUTO) 0.6 X10'3 (0-0.9); MONOCYTES % (AUTO) 11.8 % (2-12); NEUTROPHILS # (AUTO) 2.7 X10'3 (1.8-7.7); PLATELET COUNT 136 X10'3 (140-440); RED BLOOD COUNT 4.21 X10'6 (4.70-6.10); RED CELL DISTRIBUTION WIDTH 14.3 % (11.5-14.5); WHITE BLOOD COUNT 5.3 X10'3 (4.5-11.0)
[2023-12-19 09:03] LABS: ALANINE AMINOTRANSFERASE 64 U/L (12-78); ALBUMIN/GLOBULIN RATIO 0.8 (1.1-1.5); ALKALINE PHOSPHATASE 101 IU/L (46-116); ANION GAP 12 (8-16); ASPARTATE AMINO TRANSFERASE 83 U/L (10-37); BLOOD UREA NITROGEN 4 MG/DL (7-18); BUN/CREATININE RATIO 5.1 (10.0-20.0); CALCIUM 8.3 MG/DL (8.5-10.1); CHLORIDE 99 MMOL/L (99-107); CREATININE 0.78 MG/DL (0.60-1.10); GLUCOSE 98 MG/DL (70-104); LIPASE 26 U/L (16-77); SODIUM 137 MMOL/L (135-145); TOTAL CARBON DIOXIDE 26.4 MMOL/L (24-32); TOTAL PROTEIN 6.9 G/DL (6.4-8.2); eCRCL 122 ML/MIN; eGFR > 90 ML/MIN
[2023-12-19 09:07] LABS: POTASSIUM 2.9 MMOL/L (3.5-5.1)
[2023-12-19] MEDS: potassium CL 10mEq/100ml bag 100 ML IV ONE (09:10)
[2023-12-19] MEDS: loperamide 2mg capsule PO ONE (09:37)
[2023-12-19] MEDS: ondansetron/PF 4mg/2ml inj IV ONE (09:38)
[2023-12-19] MEDS: normal saline 1000ML IV soln IVB ONE (09:38)
[2023-12-19] MEDS: potassium Cl 20 mEq SR tablet PO ONE (10:03)
[2023-12-19] MEDS ORDERED: ONDA8TAB13 PO (10:31)
[2023-12-19 11:32] VITALS: BP 114/75; PULSE 89; RESP 14; O2SAT 98
== END 2023-12-19 11:35 | disposition home or self-care (01) ==
LOC: ER 07:43
DX: R10.84 Generalized abdominal pain (principal); R19.7 Diarrhea, unspecified; R11.2 Nausea with vomiting, unspecified; G89.29 Other chronic pain; M54.9 Dorsalgia, unspecified; F10.10 Alcohol abuse, uncomplicated; F12.90 Cannabis use, unspecified, uncomplicated; Z98.890 Other specified postprocedural states; Z79.899 Other long term (current) drug therapy
CPT/HCPCS: 36415; 74176; 80053; 83690; 85025; 96361; 96374; 99285; J2405; J3480; J7030; J7040

== ENCOUNTER 2024-08-08 04:52 | Inpatient (IN) | payer MEDICAID ==
[~2024-08-08] VITALS: Ht 182.9 cm; Wt 120.7 kg
[~2024-08-08 04:52] MED LIST changes: +ONDA-245 PO
[2024-08-08 06:41] LABS: BASOPHILS # (AUTO) 0.1 X10'3 (0-0.2); EOSINOPHILS % (AUTO) 0.6 % (0-6); HEMATOCRIT 38.6 % (42.0-52.0); HEMOGLOBIN 13.1 g/dl (14.0-17.9); LYMPHOCYTES # (AUTO) 1.6 X10'3 (1.1-4.8); MEAN CORPUSCULAR HEMOGLOBIN 38.1 PG (27.0-31.0); MEAN CORPUSCULAR HGB CONC 33.8 g/dL (33.0-36.5); MEAN CORPUSCULAR VOLUME 112.7 FL (78-98); MEAN PLATELET VOLUME 7.9 FL (7.4-10.4); MONOCYTES # (AUTO) 1.2 X10'3 (0-0.9); MONOCYTES % (AUTO) 15.7 % (2-12); NEUTROPHILS # (AUTO) 4.9 X10'3 (1.8-7.7); NEUTROPHILS % (AUTO) 62.7 % (42-75); PLATELET COUNT 216 X10'3 (140-440); RED BLOOD COUNT 3.43 X10'6 (4.70-6.10); WHITE BLOOD COUNT 7.9 X10'3 (4.5-11.0)
[2024-08-08] MEDS: normal saline 1000ml 1,000 ML IV ONE (06:46)
[2024-08-08] MEDS: magnesium sulf-water 2g/50mL 50 ML IV ONE ×2 (06:57→08:44)
[2024-08-08] MEDS ORDERED: LORazepam 2 mg/ml vial IV ONE (07:10)
[2024-08-08] MEDS ORDERED: HYDROmorphone 1 mg/ml syringe IV ONE (07:10)
[2024-08-08] MEDS: HYDROmorphone 1 mg/ml syringe IV ONE (07:22)
[2024-08-08] MEDS: LIDOcaine 1% W/epiNEPHrine 1:100,000 20ml vial IJ ONE (07:22)
[2024-08-08] MEDS: aspirin 81mg tab.chew PO ONE (07:30)
[2024-08-08] MEDS: normal saline 1000ML IV soln IVB ONE (07:31)
[2024-08-08] MEDS: CefTRIAXone/D5W-Rocephin 1gm 50 ML IV ONE ×2 (07:31→09:06)
[2024-08-08] MEDS: metoprolol tartrate 1mg/ml inj IV ONE (07:31)
[2024-08-08 07:43] LABS: APTT 28 SECONDS (22-32); INR 1.2 INR
[2024-08-08] MEDS: LORazepam 2 mg/ml vial IV ONE ×2 (07:55→10:14)
[2024-08-08 08:00] LABS: ANISOCYTOSIS 1+; PLATELET ESTIMATE NORMAL
[2024-08-08 08:01] LABS: HYPOCHROMASIA 1+
[2024-08-08 08:10] LABS: ALANINE AMINOTRANSFERASE 78 U/L (12-78); ALBUMIN 2.9 G/DL (3.4-5.0); ALBUMIN/GLOBULIN RATIO 0.8 (1.1-1.5); ALKALINE PHOSPHATASE 100 IU/L (46-116); ANION GAP 13 (8-16); ASPARTATE AMINO TRANSFERASE 133 U/L (10-37); BILIRUBIN,TOTAL 0.7 MG/DL (0.1-1.0); BLOOD UREA NITROGEN 7 MG/DL (7-18); CHLORIDE 103 MMOL/L (99-107); CREATININE 0.54 MG/DL (0.60-1.10); ETHANOL 96 MG/DL (<10); GLUCOSE 104 MG/DL (70-104); MAGNESIUM 1.1 MG/DL (1.5-2.4); PRO BRAIN NATRIURETIC PEPTIDE 188 PG/ML (0-125); SODIUM 141 MMOL/L (135-145); TOTAL CARBON DIOXIDE 24.7 MMOL/L (24-32); TOTAL PROTEIN 6.4 G/DL (6.4-8.2); eCRCL 174 ML/MIN; eGFR > 90 ML/MIN
[2024-08-08 08:24] LABS: POTASSIUM 2.3 MMOL/L (3.5-5.1)
[2024-08-08] MEDS: potassium CL 10mEq/100ml bag 100 ML IV ONE (08:44)
[2024-08-08] MEDS ORDERED: magnesium sulf-water 2g/50mL 50 ML IV PRN (08:55)
[2024-08-08] MEDS ORDERED: magnesium hydroxide 30ml (MOM) UD suspension PO PRN (08:55)
[2024-08-08] MEDS ORDERED: potassium Cl 20 mEq SR tablet PO PRN (08:55)
[2024-08-08] MEDS ORDERED: acetaminophen 325mg tablet PO PRN ×2 (08:55)
[2024-08-08] MEDS ORDERED: ondansetron/PF 4mg/2ml inj IV PRN (08:55)
[2024-08-08] MEDS ORDERED: haloperidol 5mg tablet PO PRN (08:55)
[2024-08-08] MEDS ORDERED: HYDROcodone/acetaminophen 5mg/325mg tablet PO PRN ×2 (08:55→16:35)
[2024-08-08] MEDS ORDERED: magnesium sulf-water 4G/100mL 100 ML IV PRN (08:55)
[2024-08-08] MEDS ORDERED: mag hydrox/Alum hydrox/simeth 30ml oral suspension PO PRN (08:55)
[2024-08-08] MEDS ORDERED: haloperidol lactate 5mg/ml inj IM PRN (08:55)
[2024-08-08] MEDS: PERFLUTREN PROTEIN-A MICROSPHR (Optison) 0.22 MG/ML 3ML VIAL IV ONE (09:00)
[2024-08-08] MEDS: normal saline 1000ml 1,000 ML IV SCH (09:00)
[2024-08-08] MEDS: magnesium oxide 400mg tablet PO ONE (09:20)
[2024-08-08] MEDS: potassium Cl 20 mEq SR tablet PO STA (09:20)
[2024-08-08 10:55] LABS: URINE AMPHETAMINE SCREEN NEGATIVE (Neg); URINE BARBITUATE SCREEN NEGATIVE (Neg); URINE BENZODIAZEPINES SCREEN NEGATIVE (Neg); URINE CANNABINOID SCREEN NEGATIVE (Neg); URINE COCAINE SCREEN NEGATIVE (Neg); URINE METHADONE SCREEN NEGATIVE (Neg); URINE OPIATE SCREEN NEGATIVE (Neg); URINE PHENCYCLIDINE SCREEN NEGATIVE (Neg)
[2024-08-08] MEDS: LORazepam 2 mg/ml vial IV PRN (11:19)
[2024-08-08 11:26] VITALS: BP 139/92; PULSE 68; TEMP 98.5; O2SAT 95
[2024-08-08 12:00] VITALS: RESP 22; O2SAT 95
[2024-08-08] MEDS: nicotine 21mg patch - 24 hr TD SCH (13:58)
[2024-08-08 15:00] VITALS: BP 143/93; PULSE 82; TEMP 98; O2SAT 95
[2024-08-08] MEDS: heparin, porcine 5000 units/ml vial SQ SCH (17:19)
[2024-08-08] MEDS: HYDROcodone/acetaminophen 10/325mg tab PO PRN (17:20)
[2024-08-08 18:00] VITALS: BP 162/101; PULSE 82; RESP 17; TEMP 97.8; O2SAT 97
[2024-08-08] MEDS: K and/or MAG REPLACEMENT MC SCH (19:06)
[2024-08-08] MEDS: docusate sod 100mg capsule PO SCH (19:23)
[2024-08-08 22:00] VITALS: BP 140/73; PULSE 86; RESP 20; TEMP 97.3; O2SAT 96
[2024-08-09] VITALS (7 sets, daily range): BP systolic 144–155; BP diastolic 68–104; PULSE 74–88; RESP 18–22; TEMP 97–98; O2SAT 96–100
[2024-08-09 03:20] LABS: BASOPHILS # (AUTO) 0.1 X10'3 (0-0.2); BASOPHILS % (AUTO) 1.4 % (0-1); HEMATOCRIT 33.9 % (42.0-52.0); HEMOGLOBIN 11.3 g/dl (14.0-17.9); LYMPHOCYTES # (AUTO) 1.4 X10'3 (1.1-4.8); MEAN CORPUSCULAR HEMOGLOBIN 37.8 PG (27.0-31.0); MEAN CORPUSCULAR HGB CONC 33.5 g/dL (33.0-36.5); MEAN CORPUSCULAR VOLUME 113.1 FL (78-98); MEAN PLATELET VOLUME 7.7 FL (7.4-10.4); MONOCYTES # (AUTO) 0.5 X10'3 (0-0.9); MONOCYTES % (AUTO) 11.4 % (2-12); NEUTROPHILS # (AUTO) 2.7 X10'3 (1.8-7.7); NEUTROPHILS % (AUTO) 57.2 % (42-75); PLATELET COUNT 155 X10'3 (140-440); RED CELL DISTRIBUTION WIDTH 17.8 % (11.5-14.5); WHITE BLOOD COUNT 4.7 X10'3 (4.5-11.0)
[2024-08-09 03:30] LABS: INR 1.1 INR; PROTHROMBIN TIME 11.8 SECONDS (9.0-12.0)
[2024-08-09 03:34] LABS: ALANINE AMINOTRANSFERASE 64 U/L (12-78); ALBUMIN 2.5 G/DL (3.4-5.0); ALBUMIN/GLOBULIN RATIO 0.8 (1.1-1.5); ALKALINE PHOSPHATASE 91 IU/L (46-116); ANION GAP 7 (8-16); ASPARTATE AMINO TRANSFERASE 85 U/L (10-37); BILIRUBIN,TOTAL 1.1 MG/DL (0.1-1.0); BLOOD UREA NITROGEN 3 MG/DL (7-18); BUN/CREATININE RATIO 6.4 (10.0-20.0); CALCIUM 6.9 MG/DL (8.5-10.1); CHLORIDE 105 MMOL/L (99-107); CREATININE 0.47 MG/DL (0.60-1.10); GLUCOSE 88 MG/DL (70-104); LIPASE 16 U/L (16-77); MAGNESIUM 1.4 MG/DL (1.5-2.4); PHOSPHORUS 2.8 MG/DL (2.3-4.5); SODIUM 144 MMOL/L (135-145); TOTAL CARBON DIOXIDE 31.9 MMOL/L (24-32); TOTAL PROTEIN 5.7 G/DL (6.4-8.2); eCRCL 200 ML/MIN; eGFR > 90 ML/MIN
[2024-08-09 03:52] LABS: POTASSIUM 2.4 MMOL/L (3.5-5.1)
[2024-08-09] MEDS: potassium Cl 20 mEq SR tablet PO PRN (04:04)
[2024-08-09] MEDS: potassium Cl 40MEQ/1/2NS 520ml 520 ML IV PRN (05:24)
[2024-08-09] MEDS: CefTRIAXone/D5W-Rocephin 1gm 50 ML IV SCH (07:30)
[2024-08-09] MEDS: multivitamins, therapeutics tablet PO SCH (07:31)
[2024-08-09] MEDS: HYDROcodone/acetaminophen 10/325mg tab PO PRN (10:18)
[2024-08-10 02:00] VITALS: BP 140/73; PULSE 74; RESP 20; TEMP 97.4; O2SAT 92
[2024-08-10 06:33] LABS: BASOPHILS # (AUTO) 0.1 X10'3 (0-0.2); BASOPHILS % (AUTO) 1.3 % (0-1); EOSINOPHILS # (AUTO) 0.1 X10'3 (0-0.9); EOSINOPHILS % (AUTO) 1.9 % (0-6); HEMATOCRIT 31.8 % (42.0-52.0); LYMPHOCYTES # (AUTO) 0.9 X10'3 (1.1-4.8); LYMPHOCYTES % (AUTO) 19.8 % (21-51); MEAN CORPUSCULAR HEMOGLOBIN 39.2 PG (27.0-31.0); MEAN CORPUSCULAR HGB CONC 34.5 g/dL (33.0-36.5); MEAN CORPUSCULAR VOLUME 113.7 FL (78-98); MEAN PLATELET VOLUME 8.4 FL (7.4-10.4); MONOCYTES # (AUTO) 0.5 X10'3 (0-0.9); MONOCYTES % (AUTO) 10.5 % (2-12); NEUTROPHILS % (AUTO) 66.5 % (42-75); PLATELET COUNT 139 X10'3 (140-440); RED CELL DISTRIBUTION WIDTH 17.8 % (11.5-14.5); WHITE BLOOD COUNT 4.5 X10'3 (4.5-11.0)
[2024-08-10 06:47] LABS: INR 1.1 INR; PROTHROMBIN TIME 11.5 SECONDS (9.0-12.0)
[2024-08-10 06:58] LABS: ALANINE AMINOTRANSFERASE 45 U/L (12-78); ALBUMIN 2.3 G/DL (3.4-5.0); ALBUMIN/GLOBULIN RATIO 0.8 (1.1-1.5); ALKALINE PHOSPHATASE 84 IU/L (46-116); ANION GAP 6 (8-16); ASPARTATE AMINO TRANSFERASE 61 U/L (10-37); BLOOD UREA NITROGEN 3 MG/DL (7-18); BUN/CREATININE RATIO 5.9 (10.0-20.0); CALCIUM 7.4 MG/DL (8.5-10.1); CHLORIDE 105 MMOL/L (99-107); CREATININE 0.51 MG/DL (0.60-1.10); GLUCOSE 89 MG/DL (70-104); LIPASE 16 U/L (16-77); MAGNESIUM 1.2 MG/DL (1.5-2.4); PHOSPHORUS 2.9 MG/DL (2.3-4.5); POTASSIUM 3.7 MMOL/L (3.5-5.1); SODIUM 140 MMOL/L (135-145); TOTAL PROTEIN 5.3 G/DL (6.4-8.2); eCRCL 184 ML/MIN; eGFR > 90 ML/MIN
[2024-08-10 07:46] LABS: ANISOCYTOSIS 1+; PLATELET ESTIMATE DECREASED
[2024-08-10 08:00] VITALS: RESP 15; O2SAT 94
[2024-08-10] MEDS ORDERED: LORazepam 1 MG tablet PO PRN (08:55)
[2024-08-10] MEDS ORDERED: LORazepam 2 mg/ml vial IV PRN (08:55)
[2024-08-10 09:46] VITALS: RESP 17
[2024-08-10] MEDS ORDERED: HYDR-3972 PO (10:20)
[2024-08-10] MEDS ORDERED: ACAM333T8 PO (10:20)
[2024-08-10] MEDS ORDERED: LORA-269 PO (10:20)
[2024-08-10] MEDS ORDERED: CEPH500C2 PO (10:22)
[2024-08-12] MEDS ORDERED: thiamine 100mg tablet PO SCH (08:00)
[2024-08-12] MEDS ORDERED: LORazepam 2 mg/ml vial IV PRN (08:55)
[2024-08-12] MEDS ORDERED: LORazepam 1 MG tablet PO PRN (08:55)
[2024-08-13] MEDS ORDERED: folic acid 1mg tablet PO SCH (08:00)
== END 2024-08-10 11:15 | disposition home or self-care (01) | DRG 351 ==
LOC: ER 04:53 → ED HOLD 08:57 → PCU 3S 11:35
PROVIDERS: ADMIT Family Medicine; ATTEND Family Medicine
PROC: 0HQLXZZ Repair Left Lower Leg Skin, External Approach (ICD-10-PCS; principal; 2024-08-08)
DX: S81.012A Laceration without foreign body, left knee, initial encounter (principal); I20.0 Unstable angina; F10.229 Alcohol dependence with intoxication, unspecified; F10.239 Alcohol dependence with withdrawal, unspecified; E87.6 Hypokalemia; E83.42 Hypomagnesemia; D53.9 Nutritional anemia, unspecified; F17.210 Nicotine dependence, cigarettes, uncomplicated; I35.1 Nonrheumatic aortic (valve) insufficiency; I48.91 Unspecified atrial fibrillation; X58.XXXA Exposure to other specified factors, initial encounter; Y93.89 Activity, other specified; Y92.89 Other specified places as the place of occurrence of the external cause; Y99.8 Other external cause status
CPT/HCPCS: 12004; 36415; 71045; 80053; 80305; 80320; 83690; 83735; 83880; 84100; 84132; 84484; 85008; 85025; 85610; 85730; 86885; 86900; 86901; 93005; 93306; 97110; 97116; 97162; 99285; A6446; A6449; G0378; J0696; J1171; J1644; J2060; J3480; J3490; J7030

== ENCOUNTER 2024-10-14 23:49 | Emergency (ER) | payer MEDICAID ==
[~2024-10-14] VITALS: Ht 182.9 cm; Wt 113.5 kg
[~2024-10-14 23:49] MED LIST changes: +ACAM333T8 PO; +CEPH500C2 PO; +HYDR-3972 PO; +LORA-269 PO; -NO HOME MEDS
[2024-10-14 23:51] VITALS: O2SAT 96
[2024-10-15 00:15] LABS: BASOPHILS # (AUTO) 0.1 X10'3 (0-0.2); BASOPHILS % (AUTO) 1.7 % (0-1); EOSINOPHILS # (AUTO) 0.1 X10'3 (0-0.9); EOSINOPHILS % (AUTO) 2.3 % (0-6); HEMOGLOBIN 15.6 g/dl (14.0-17.9); LYMPHOCYTES # (AUTO) 2.4 X10'3 (1.1-4.8); LYMPHOCYTES % (AUTO) 51.5 % (21-51); MEAN CORPUSCULAR HEMOGLOBIN 35.4 PG (27.0-31.0); MEAN CORPUSCULAR HGB CONC 34.6 g/dL (33.0-36.5); MEAN CORPUSCULAR VOLUME 102.4 FL (78-98); MEAN PLATELET VOLUME 8.5 FL (7.4-10.4); MONOCYTES # (AUTO) 0.5 X10'3 (0-0.9); MONOCYTES % (AUTO) 10.4 % (2-12); NEUTROPHILS # (AUTO) 1.6 X10'3 (1.8-7.7); NEUTROPHILS % (AUTO) 34.1 % (42-75); PLATELET COUNT 78 X10'3 (140-440); RED CELL DISTRIBUTION WIDTH 14.4 % (11.5-14.5); WHITE BLOOD COUNT 4.7 X10'3 (4.5-11.0)
[2024-10-15] MEDS: acetaminophen 325mg tablet PO ONE (00:32)
[2024-10-15] MEDS: ketorolac trometh 15mg/ml vial 15 MG/ML ML IV ONE (00:33)
[2024-10-15] MEDS: dicyclomine 10mg/ml 2ml ampule IM ONE (00:33)
[2024-10-15 00:35] LABS: ALANINE AMINOTRANSFERASE 76 U/L (12-78); ALBUMIN 3.6 G/DL (3.4-5.0); ALKALINE PHOSPHATASE 125 IU/L (46-116); ANION GAP 12 (8-16); ASPARTATE AMINO TRANSFERASE 217 U/L (10-37); BILIRUBIN,TOTAL 0.9 MG/DL (0.1-1.0); BLOOD UREA NITROGEN 4 MG/DL (7-18); BUN/CREATININE RATIO 6.2 (10.0-20.0); CALCIUM 8.2 MG/DL (8.5-10.1); CHLORIDE 104 MMOL/L (99-107); CREATININE 0.65 MG/DL (0.60-1.10); GLUCOSE 106 MG/DL (70-104); PRO BRAIN NATRIURETIC PEPTIDE < 30 PG/ML (0-125); SODIUM 144 MMOL/L (135-145); TOTAL CARBON DIOXIDE 27.8 MMOL/L (24-32); TOTAL PROTEIN 7.2 G/DL (6.4-8.2); eCRCL 144 ML/MIN; eGFR > 90 ML/MIN
[2024-10-15 00:38] LABS: POTASSIUM 2.9 MMOL/L (3.5-5.1)
[2024-10-15 00:50] LABS: PLATELET ESTIMATE DECREASED; TOTAL CELLS COUNTED 100
[2024-10-15 01:38] LABS: ETHANOL 367 MG/DL (<10)
[2024-10-15] MEDS: potassium Cl 20 mEq SR tablet PO STA (01:41)
[2024-10-15] MEDS: ondansetron 4mg rapidly disintigrating tab PO ONE (01:41)
[2024-10-15] MEDS ORDERED: CYCL-1 PO (02:37)
[2024-10-15 02:52] LABS: URINE AMPHETAMINE SCREEN NEGATIVE (Neg); URINE BARBITUATE SCREEN NEGATIVE (Neg); URINE BENZODIAZEPINES SCREEN NEGATIVE (Neg); URINE CANNABINOID SCREEN POSITIVE (Neg); URINE COCAINE SCREEN NEGATIVE (Neg); URINE METHADONE SCREEN NEGATIVE (Neg); URINE OPIATE SCREEN NEGATIVE (Neg); URINE PHENCYCLIDINE SCREEN NEGATIVE (Neg)
[2024-10-15 02:54] VITALS: BP 146/80; PULSE 78; RESP 16; TEMP 97.2
== END 2024-10-15 02:57 | disposition home or self-care (01) ==
LOC: ER 23:49
DX: M43.6 Torticollis (principal); M25.512 Pain in left shoulder; F10.10 Alcohol abuse, uncomplicated; F12.90 Cannabis use, unspecified, uncomplicated; Y90.9 Presence of alcohol in blood, level not specified
CPT/HCPCS: 36415; 71045; 80053; 80305; 80320; 83880; 84484; 85007; 85025; 93005; 96372; 96374; 99285; J0500; J1885

== ENCOUNTER 2024-11-15 14:39 | Inpatient (IN) | payer MEDICAID ==
[~2024-11-15] VITALS: Ht 180.3 cm; Wt 113.0 kg
[~2024-11-15 14:39] MED LIST changes: +CYCL-1 PO
[2024-11-15] MEDS ORDERED: iohexol 350MG/ML 100ml bottle IV ONE (14:44)
--- NOTE | 2024-11-15 14:54 | Physician Documentation ---
History of Present Illness ~ Chief Complaint: Stroke Alert Stated Complaint: STROKE ALERT Time Seen by MD: 14:43 OK to notify your PCP?: Yes Primary Medical Doctor: NONE Source: patient, RN/MD, EMS, RN notes reviewed, EMS notes reviewed, old records Mode of Arrival: EMS Exam Limitations: no limitations HPI 54 year old male with history of TIAs and Afib seen in bed 05 presents to the emergency department via EMS from home for complaints of a possible stroke. Per EMS patient is having left sided neck pain with associated weakness in his left arm. Additionally his left leg is weak but it is weak at baseline. Patients last known normal was at 1330 today. Patient denies any other associated symptoms at this time. Patient denies any other alleviating or exacerbating factors. Medication Reconciliation Allergies: Coded Allergies: No Known Allergies (Unverified , 12/19/23) Scheduled Acamprosate Calcium (Acamprosate Calcium), 2 TAB PO Q8H Cephalexin Monohydrate (Cephalexin), 1 CAP PO Q6H Cyclobenzaprine* (Cyclobenzaprine*), 1 TAB PO Q8H Naloxone HCl (Narcan), 1 SPRAYS BOTHNARES ONCE Ondansetron 8mg ODT (Ondansetron Odt), 1 TAB PO Q8H Scheduled PRN Hydrocodone Bit/Acetaminophen (Hydrocodon-Acetaminophn 10-325 tablet), 1 TAB PO Q4H PRN for SEVERE PAIN 7-10 Lorazepam (Ativan), 1 TAB PO Q12H PRN for delirium/tremors Past Medical History Past Medical History: CVA/TIA/Stroke, Chronic Back Pain, *PSYCH* Past Surgical History: orthopedic surgeries, other Patient History: Patient reports no known family medical history. Alcohol Use: Abuse Drug Use: marijuana Lives with: Family Lives In: Home Review of Systems All Other Systems at this time: Reviewed and Negative ROS As stated above in the HPI, otherwise all systems are reviewed and negative. Physical Exam Vital Signs: RN Vital Signs have been reviewed: Yes, Heart Rate: 95, Res piratory Rate: 18, BP: 131/71, Pulse Oximetry: 96 Pulse Oximetry Reflects: adequate oxygenation General Appearance General: The patient is well developed, well nourished, nontoxic appearing and is in no acute distress. Skin: [place], warm and dry with no rashes. HEENT: Head was normocephalic and atraumatic. Eyes - pupils equal, round, reac tive to light and accommodation. Extraocular movements were intact. Conjunctivae were nonicteric. Ears - bilateral tympanic membranes were normal. The mouth and oropharynx were clear with moist mucous membranes. There were no pharyngeal exudates or erythema. Neck: Supple and nontender. There was no jugular venous distention, lymphadenopathy, thyromegaly or masses. Chest: Clear to auscultation bilaterally without wheezes, rales or rhonchi. No accessory muscle use. No dullness to percussion. Heart: Rate regular and rhythmic. S1, S2. No murmurs. Palpation of the chest wall was normal. No rubs or thrills. Abdomen: Soft, nontender and nondistended. Positive bowel sounds. No guarding or rebound. No hepatosplenomegaly or palpable masses. Extremities: No cyanosis, clubbing or edema. The patient moves all extremities. Pulses were equal and symmetric. Neurologic: Left upper extremity weakness with a partial left sided facial droop. Cranial nerves II-XII were intact. Sensation was intact to light touch throughout. Motor strength was 5/5 in all four extremities. Deep tendon reflexes were intact in both upper and lower extremities. Psychologic: The patient was oriented to person, place and time. The patient demonstrated appropriate judgement and insight. Progress Progress Note 1746: The case was discussed to the hospitalist Dr. Blackburn who was informed on the patients case and kindly agreed to admission. Results/Orders Reviewed/noted all lab results: Yes Results/Orders Orders - VIPUL HERBERT MD Monitor (11/15/24 14:42) 2 Large Bore Ivs (11/15/24 14:42) Electrocardiogram (11/15/24 14:42) Chest,Single View (11/15/24 15:04) Accucheck (11/15/24 14:42) Ct Stroke Alert (11/15/24 14:59) Ct Cervical Spine (11/15/24 14:59) Cta Neck/Head (11/15/24 15:00) [place] Prov.Neuro Consult (11/15/24 14:52) Urinalysis, Cult If Indicated (11/15/24 17:05) Drug Screen, Urine (11/15/24 17:05) Completed Orders - VIPUL HERBERT MD Electrocardiogram (11/15/24 14:42) Chest,Single View (11/15/24 15:04) Ct Stroke Alert (11/15/24 14:59) PTT (11/15/24 14:42) Pt Inr (11/15/24 14:42) Iohexol 350mg/Ml 100ml (Omnipaque 350mg/ (11/15/24 14:44) Ct Cervical Spine (11/15/24 14:59) Cta Neck/Head (11/15/24 15:00) BMP (11/15/24 15:45) Cbc/Diff (11/15/24 16:03) Hydromorphone 1 Mg/Ml/Pf (Dilaudid Inj.) (11/15/24 16:15) Magnesium Sulf-Water 2g/50ml (Magnesium (11/15/24 17:05) Potassium Cl Sr Tablet (K-Dur Tablet) (11/15/24 17:05) Potassium Cl 10meq/100ml Bag (Potassium (11/15/24 17:05) Ethanol (11/15/24 16:30) MG (11/15/24 16:30) Liver Panel (11/15/24 16:30) Medications Received in ER Medications (Trade) Dose Ordered Sig/Kendal Route PRN Reason Start Time Stop Time Status Last Admin Dose Admin (Dilaudid inj.) 1 mg ONCE ONCE IV 11/15/24 16:15 11/15/24 16:16 DC 11/15/24 16:32 1 MG Magnesium Sulfate 50 ml @ 25 mls/hr ONCE ONCE IV 11/15/24 17:05 11/15/24 19:04 DC 11/15/24 17:29 25 MLS/HR (K-DUR tablet) 20 meq ONCE ONCE PO 11/15/24 17:05 11/15/24 17:07 DC 11/15/24 17:29 20 MEQ Potassium Chloride 100 ml @ 100 mls/hr ONCE ONCE IV 11/15/24 17:05 11/15/24 18:11 DC 11/15/24 17:29 100 MLS/HR (morphine inj.) 2 mg Q4H PRN IV severe pain (7-10) 11/15/24 17:50 11/15/24 19:07 2 MG Vital Signs 11/15/24 11/15/24 11/15/24 11/15/24 14:43 15:18 15:22 16:32 Pulse 95 100 Resp 18 17 18 B/P (MAP) 131/71 144/100 Pulse Ox 96 98 11/15/24 17:16 Pulse 57 Resp 16 B/P (MAP) 136/82 Pulse Ox 97 Laboratory Tests Test 11/15/24 15:18 11/15/24 16:30 CBC Comment Prothrombin Time 11.6 INR International Normalized Ratio 1.1 Activated Partial Thromboplast Time 30 Coagulation Comments Chemistry Comments White Blood Count 3.9 L Red Blood Count 4.16 L Hemoglobin 14.8 Hematocrit 42.8 Mean Corpuscular Volume 102.9 H Mean Corpuscular Hemoglobin 35.5 H Mean Corpuscular Hemoglobin Concent 34.5 Red Cell Distribution Width 14.3 Platelet Count 55 L Mean Platelet Volume 8.6 Neutrophils (%) (Auto) 36.1 L Lymphocytes (%) (Auto) 47.7 Monocytes (%) (Auto) 12.0 Eosinophils (%) (Auto) 1.7 Basophils (%) (Auto) 2.5 H Neutrophils # (Auto) 1.4 L Lymphocytes # (Auto) 1.9 Monocytes # (Auto) 0.5 Eosinophils # (Auto) 0.1 Basophils # (Auto) 0.1 Sodium Level 137 Potassium Level 2.6 *L Chloride Level 98 L Carbon Dioxide Level 25.1 Anion Gap 14 Blood Urea Nitrogen 4 L Creatinine 0.82 Estimated GFR/1.73 m2 > 90 BUN/Creatinine Ratio 4.9 L Glucose Level 102 Calcium Level 8.3 L Magnesium Level 1.3 L Total Bilirubin 1.7 H Direct Bilirubin 0.9 H Aspartate Amino Transf (AST/SGOT) 196 H Alanine Aminotransferase (ALT/SGPT) 58 Alkaline Phosphatase 130 H Total Protein 7.7 Albumin 3.7 Globulin 4.0 Albumin/Globulin Ratio 0.9 L Ethyl Alcohol Level 348 H Re-Evaluation Re-Evaluation : Re-Evaluation: Improved Progress Patient was seen and examined. Patient is given reassurance. The patient is placed on a monitor. Stroke alert was called patient was immediately sent to CAT scan. The patient otherwise is doing a bit better he was also complaining of neck pain has had torticollis in the past. He is not on any anticoagulation for his history of strokes. Patient has no history of AFib. Patient was then seen by neurology who recommended further evaluation but does not sound like the patient has having an actual stroke may be related to chronic neck pain later patient was found to be quite drunk and may be contributing to his presentation. Patient's laboratory work had a sed rate of five CBC within normal limits except MCV slightly elevated at 99 consistent went macrocytosis. Chemistry within normal limits lactic acid 1.0 procalcitonin negative makes infectious etiologies unlikely however patient's liver function tests were slightly off with a bilirubin of 0.6 AST 117 ALT 140 alk-phos 135. For that reason ultrasound was obtained and there was negative gallstones or abnormalities. Urinalysis shows a specific gravity of 1.025 with trace leukocyte esterase WBCs 10-20 but moderate squamous epithelial cells may be a contaminant specimen. Patient isn't a tPA candidate. Patient was then admitted to the hospitalist service for further workup and care. Patient's alcohol is 348 Continuous checkman interpretation shows normal sinus rhythm heart rate 60s, no ectopy, normal, my interpretation. Pulse oximetry monitor interpretation shows normal oxygenation at 98% room air, normal, my interpretation. EKG/XRAY/CT/US/VASC/MRI EKG : Additional Comment [facility] Test Date: 2024-11-15 Test Time: 15:01:39 Pat Name: STEVEN DEUTSCH Department: EMERGENCY ROOM Room: Gender: M Bilingual Medical Assistant: KH : 1970 Requested By: VIPUL HERBERT Order Number: [id number] Reading MD: Dr. Vipul Herbert Measurements Intervals [place] Rate: 87 P: 80 WV: 213 QRS: 62 QRSD: 109 T: 57 QT: 420 QTc: 506 Interpretive Statements Sinus rhythm Prolonged [place] interval Prolonged QT interval Electronically Signed On 11-15-2024 16:17:[address] Vipul Herbert Please click the below link to view image of tracing. EKG Date and Time:11/15/24 1501 Electronically Signed by: VIPUL HERBERT MD Date and Time: 11/15/24 1617 Chest X-Ray : Additional Comments CHEST RADIOGRAPH Indication: Stroke Alert Technique: Single frontal view of the chest was obtained Comparison: DI CHEST,SINGLE VIEW on DOS: 4/22/25, DI CHEST,SINGLE VIEW on DOS: 08/08/24, CHEST,SINGLE VIEW on DOS: 10/09/22, CHEST,SINGLE VIEW on DOS: 10/12/20 FINDINGS: Lines and Tubes: None Lungs: No focal consolidation. Pleura: No effusion. No pneumothorax. Cardiomediastinal contours: Unremarkable Bones: No acute osseous abnormality. IMPRESSION: 1. No acute cardiopulmonary disease. Electronically Signed by:VARSHA ELLIOTT MD Date & Time: 11/15/[address] #1: Impression INDICATION: cva COMPARISON: None TECHNIQUE: CTA head with intravenous contrast. CTA neck with intravenous contrast. 3D image postprocessing was performed on a dedicated workstation and images were used for interpretation and reporting. Radiation Dose Information: CT Dose: CTDI volume is 30 mGy. Dose-length product is 615 mGy*cm CONTRAST: Type of contrast: Omni 300 Contrast injected: 100 ml FINDINGS: CTA head: There is normal enhancement of the visualized distal internal carotid, anterior and middle cerebral arteries. There is a normal anterior communicating artery complex. Left A1 segment is atretic. The vertebral, basilar, cerebellar and posterior cerebral arteries are within normal limits. The early parenchymal enhancement is grossly unremarkable. The visualized intracranial venous structures are grossly unremarkable. CTA neck: Limited by motion. The visualized thoracic aortic arch and proximal great vessels are unremarkable. The left common, internal and external carotid arteries are within normal limits. The right common, internal and external carotid arteries are within normal limits. The cervical segments of the right and left vertebral arteries are within normal limits. The limited visualized lung apices are clear. Left thyroid cyst or nodule. Degenerative changes in the cervical spine. IMPRESSION: 1. No evidence of hemodynamically significant intracranial stenosis, proximal occlusion or aneurysm. 2. No evidence of hemodynamically significant carotid stenosis or dissection. All CT scans at this medical facility are performed using dose modulation techniques as appropriate to a performed exam including the following: Automated exposure control was utilized; adjustment of the MA and/or KV according to patient size; and use of iterative reconstruction technique. HS:Y Electronically Signed by:JORDAN CHIN MD Date & Time: 11/15/[address] #2: Impression CT CT STROKE ALERT INDICATION: Stroke Alert EXAM DATE: 11/15/2024 02:47 PM COMPARISON: None TECHNIQUE: CT of the head without intravenous contrast. RADIATION DOSE: CTDIvol: 61.68 mGy, DLP: 1132.72 mGy*cm FINDINGS: There is no evidence of acute intracranial hemorrhage, extra-axial collection, mass effect, midline shift, herniation or hydrocephalus. The ventricles, sulci and cisterns are age appropriate. The willoughby-white differentiation is intact. The visualized paranasal sinuses and mastoid air cells are clear. The surrounding soft tissues and osseous structures are unremarkable. [Moderate periventricular white matter disease is present, likely secondary to microvascular angiopathy.] IMPRESSION: 1. No evidence of acute intracranial hemorrhage, mass effect or hydrocephalus. Referring physician notified through materials assistant Electronically Signed by:VARSHA ELLIOTT MD Date & Time: 11/15/[address] #3: Impression CLINICAL HISTORY: history of neck pain and torticolis COMPARISON: None TECHNIQUE: Axial CT images of the cervical spine were obtained without IV contrast. Coronal and sagittal reformatted images were obtained. All CT scans at this medical facility are performed using dose modulation techniques as appropriate to a performed exam including the following: Automated exposure control was utilized; adjustment of the MA and/or KV according to patient size; and use of iterative reconstruction technique. CTDIvol = 23.32 mGy DLP = 564.79 mGy-cm FINDINGS: Bones: Straightening of the normal cervical lordosis. Minimal retrolisthesis of C5 on C6. Vertebral body heights are maintained. Posterior elements are intact. No acute fracture. Moderate to severe disc space narrowing at C5-C6. Facet and uncinate hypertrophy, most prominent at the C5-C6 level, where there are severe bilateral neural foraminal stenoses. Paraspinal soft tissues: Prevertebral and paraspinal soft tissues are unremarkable. Other: Chronic calcification caudal to the anterior arch of C1, likely due to tendinous calcification of the adjacent right longus colli tendon. IMPRESSION: 1. Straightening of the normal cervical lordosis. Minimal retrolisthesis of C5 on C6. 2. No evidence of acute fracture of the cervical spine. 3. Degenerative disc disease and facet/ uncinate disease in the cervical spine as detailed above, most prominent as detailed above. 4. Nonacute findings as described above. Electronically Signed by:OSITO DAVIS DO Date & Time: 11/15/24 1539 Medical Decision Making Additional info obtained from: old records Differential Dx:Considerations: Include: Kauffman's Palsey, CVA, Delirium tremens, DKA, Drug overdose, Electrolyte imbalance, Encephalopathy, Hypoxemia, Hypoglycemia, Mass lesion, Respiratory failure, Subarachnoid Hemorrhage, TIA, Other Departure Time of Disposition: 17:46 Disposition: 09 ADMITTED INPATIENT Admitted to Inpatient Unit: yes, to hospitalist Admission Level of Care: PCU with Tele Impression: Primary Impression: TIA (transient ischemic attack) Additional Impressions: Neck pain Hypokalemia Hypomagnesemia Alcohol intoxication Qualified Codes: F10.920 - Alcohol use, unspecified with intoxication, uncomplicated Condition: Guarded Referrals: NO PRIMARY CARE PROVIDER (PCP) Education Educated: Patient Educated regarding: diagnosis Critical Care Note Total Time (mins): 30 Critical Care Note The very real possibility of a deterioration of this patient's condition required the highest level of my preparedness for sudden, emergent intervention. I provided critical care services, which included medication orders, frequent reevaluations of the patient's condition and response to treatment, ordering and reviewing test results, and discussing the case with various consultants. Excludes time spent performing separately billable procedures. The critical care time associated with the care of the patient was 30 minutes. Signature Scribe Signature: Scribed for Vipul Herbert MD by Joellen Lopez . 11/15/24 14:58 Attestation: The note accurately reflects work and decisions made by me.Vipul Herbert MD 11/15/24 14:54 VIPUL HERBERT MD November 15, 2024 14:54 JOELLEN CRANE November 15, 2024 14:58
--- NOTE | 2024-11-15 15:04 | ELECTROCARDIOGRAPH REPORT ---
[facility] Test Date: 2024-11-15 Test Time: 15:01:39 Pat Name: STEVEN DEUTSCH Department: EMERGENCY ROOM Room: Gender: M Nursing Project Coordinator: KISHOR : 1970 Requested By: OBDULIO VEMRA Order Number: [id number] Reading MD: Dr. Obdulio Verma Measurements Intervals [place] Rate: 87 P: 80 [place]: 213 QRS: 62 QRSD: 109 T: 57 QT: 420 QTc: 506 Interpretive Statements Sinus rhythm Prolonged [place] interval Prolonged QT interval Electronically Signed On 11-15-2024 16:17:[address] Obdulio Verma Please click the below link to view image of tracing.
--- NOTE | 2024-11-15 15:14 | RADIOLOGY REPORT ---
CT CT STROKE ALERT INDICATION: Stroke Alert EXAM DATE: 11/15/2024 02:47 PM COMPARISON: None TECHNIQUE: CT of the head without intravenous contrast. RADIATION DOSE: CTDIvol: 61.68 mGy, DLP: 1132.72 mGy*cm FINDINGS: There is no evidence of acute intracranial hemorrhage, extra-axial collection, mass effect, midline s hift, herniation or hydrocephalus. The ventricles, sulci and cisterns are age appropriate. The willoughby -white differentiation is intact. The visualized paranasal sinuses and mastoid air cells are clear. The surrounding soft tissues and osseous structures are unremarkable. [Moderate periventricular white matter disease is present, likely secondary to microvascular angiopat hy.] IMPRESSION: 1. No evidence of acute intracranial hemorrhage, mass effect or hydrocephalus. Referring physician notified through assistant manager bilingual
--- NOTE | 2024-11-15 15:22 | RADIOLOGY REPORT ---
CHEST RADIOGRAPH Indication: Stroke Alert Technique: Single frontal view of the chest was obtained Comparison: DI CHEST,SINGLE VIEW on DOS: 10/15/24, DI CHEST,SINGLE VIEW on DOS: 08/08/24, CHEST,SINGLE VIEW on DOS: 10/09/22, CHEST,SINGLE VIEW on DOS: 10/12/20 FINDINGS: Lines and Tubes: None Lungs: No focal consolidation. Pleura: No effusion. No pneumothorax. Cardiomediastinal contours: Unremarkable Bones: No acute osseous abnormality. IMPRESSION: 1. No acute cardiopulmonary disease.
--- NOTE | 2024-11-15 15:37 | RADIOLOGY REPORT ---
INDICATION: cva COMPARISON: None TECHNIQUE: CTA head with intravenous contrast. CTA neck with intravenous contrast. 3D image postproce ssing was performed on a dedicated workstation and images were used for interpretation and reporting. Radiation Dose Information: CT Dose: CTDI volume is 30 mGy. Dose-length product is 615 mGy*cm CONTRAST: Type of contrast: Omni 300 Contrast injected: 100 ml FINDINGS: CTA head: There is normal enhancement of the visualized distal internal carotid, anterior and middle cerebral a rteries. There is a normal anterior communicating artery complex. Left A1 segment is atretic. The [place] tebral, basilar, cerebellar and posterior cerebral arteries are within normal limits. The early paren chymal enhancement is grossly unremarkable. The visualized intracranial venous structures are grossly unremarkable. CTA neck: Limited by motion. The visualized thoracic aortic arch and proximal great vessels are unremarkable. The left common, internal and external carotid arteries are within normal limits. The right common, internal and external carotid arteries are within normal limits. The cervical segments of the right and left vertebral arteries are within normal limits. The limited visualized lung apices are clear. Left thyroid cyst or nodule. Degenerative changes in th e cervical spine. IMPRESSION: 1. No evidence of hemodynamically significant intracranial stenosis, proximal occlusion or aneurysm. 2. No evidence of hemodynamically significant carotid stenosis or dissection. All CT scans at this medical facility are performed using dose modulation techniques as appropriate t o a performed exam including the following: Automated exposure control was utilized; adjustment of th e MA and/or KV according to patient size; and use of iterative reconstruction technique. HS:Y
--- NOTE | 2024-11-15 15:41 | RADIOLOGY REPORT ---
CLINICAL HISTORY: history of neck pain and torticolis COMPARISON: None TECHNIQUE: Axial CT images of the cervical spine were obtained without IV contrast. Coronal and sagit aminah reformatted images were obtained. All CT scans at this medical facility are performed using dose modulation techniques as appropriate to a performed exam including the following: Automated exposure control was utilized; adjustment of the MA and/or KV according to patient size; and use of iterative reconstruction technique. CTDIvol = 23.32 mGy DLP = 564.79 mGy-cm FINDINGS: Bones: Straightening of the normal cervical lordosis. Minimal retrolisthesis of C5 on C6. Vertebral b rico heights are maintained. Posterior elements are intact. No acute fracture. Moderate to severe disc space narrowing at C5-C6. Facet and uncinate hypertrophy, most prominent at the C5-C6 level, where t here are severe bilateral neural foraminal stenoses. Paraspinal soft tissues: Prevertebral and paraspinal soft tissues are unremarkable. Other: Chronic calcification caudal to the anterior arch of C1, likely due to tendinous calcification of the adjacent right longus colli tendon. IMPRESSION: 1. Straightening of the normal cervical lordosis. Minimal retrolisthesis of C5 on C6. 2. No evidence of acute fracture of the cervical spine. 3. Degenerative disc disease and facet/ uncinate disease in the cervical spine as detailed above, mos t prominent as detailed above. 4. Nonacute findings as described above.
--- NOTE | 2024-11-15 15:48 | [facility] CONSULT REPORT ---
[facility] Procedure Note [facility] Procedure Note Consult [facility] Note # Demographics Consult Type: Acute Stroke Level 1 (0-4.5 hrs) Patient Location: Emergency Room First Name: STEVEN Last Name: GET Date of : 1970 Age: 54 Gender: Male Facility: [facility] Time of Initial Page (): 11/15/2024 15:20 Time of Return Call (): 11/15/2024 15:21 # HPI Chief Complaint: Spasms History: 54yom with HTN, a fib (not on any AC) with L sided turning towards the left, L sided neck pain, and L sided radiculopathy. He had a similar presentation last month and was told it was a "mini stroke" or torticollis. Denies getting any further workup with MRI. He is complaining of significant pain in neck and down L side. He says pain feels like shooting. On exam, his neck is turned to left, L leg is spasming. Last Known Normal: - I have collected independent history specific to time last normal or last kn own well. We have collaborated with the provider and at this time, we have the most current timeline with the information that is available. 1PM # Scores Time of exam and NIHSS (): 11/15/2024 15:27 Level of Consciousness 1a: [0] = Alert; keenly responsive LOC Questions 1b: [0] = Answers both questions correctly LOC Commands 1c: [0] = Performs both tasks correctly Best Gaze 2: [0] = Normal Visual 3: [0] = No visual loss Facial Palsy 4: [0] = Normal symmetrical movements Motor Arm Left 5a: [0] = No drift Motor Arm Right 5b: [0] = No drift Motor Leg Left 6a: [0] = No drift Motor Leg Right 6b: [0] = No drift Limb Ataxia 7: [0] = Absent Sensory 8: [1] = Pzbj-bi-otuzonzt sensory loss Best Language 9: [0] = No aphasia Dysarthria 10: [1] = Ycmc-zc-qojxrccf dysarthria Extinction and Inattention 11: [0] = No abnormality NIHSS Total: 2 # Data Time Head CT personally read by me (): 11/15/2024 15:[address]: - no bleed - per radiologist read CTA Head: - no large vessel occlusion - preliminarily reviewed by me, please refer to radiology read for official reading CTA Neck: - patent vessels - preliminarily reviewed by me, please refer to radiology read for official reading # Assessment Impression: Pt with significant pain down L neck, L arm, L leg and spasming/stiff. Endorses heaviness on that side but feels that there is a significant component of pain. On exam, his neck is turned towards the left, feels that that relieves the pain. Was able to ambulate. Had a similar presentation last month that resolved after a few hours and after receiving pain medications. Suspect this is more related to muscle spasms rather than stroke at this time. I discussed this with pt and stated that I believed treatment for stroke with thrombolytics would be higher risk than reward and he was in agreement. Plan for the following workup as below # Plan Thrombolytic/Intervention: NOT IV Thrombolysis or IA Intervention candidate Intraarterial Exclusion: - clinical exam not consistent with presence of large vessel occlusion (LVO), can reconsider if LVO found on vascular imaging Thrombolytic/Intraarterial Exclusion: - IV thrombolytic and IA intervention considered but not recommended as this patient's symptoms are not clinically consistent with an assumed diagnosis of stroke Labs: Magnesium level Imaging: (urgency: STAT): - CT Angiogram Head and CT Angiogram Neck AND call back with results if abnormal Imaging: (urgency: routine): - MRI Brain with AND without contrast - MRI C spine w and wo contrast Other: - If patient has any neurological deterioration please call me back immediately # Logistics Attestation of consult completion: The patient is located at: [facility]. Facility staff participated in the visit. I performed this telemedicine visit from my offsite office utilizing interactive 2 way audio and visual telecommunication technology. Total time spent in telemedicine encounter: I spent 24 minutes reviewing clinical data and/or imaging, obtaining history, examining the patient, c ommunicating with the onsite care team, and in preparation of this report. # Demographics First Name: STEVEN Last Name: [facility] Facility: [facility] Neuro Consult Order placed for: Yes TAYLOR MOLINA MD November 15, 2024 15:48
[2024-11-15 15:55] LABS: APTT 30 SECONDS (22-32); INR 1.1 INR; PROTHROMBIN TIME 11.6 SECONDS (9.0-12.0)
[2024-11-15] MEDS: HYDROmorphone 1 mg/ml syringe IV ONE (16:32)
[2024-11-15 16:42] LABS: BASOPHILS # (AUTO) 0.1 X10'3 (0-0.2); BASOPHILS % (AUTO) 2.5 % (0-1); EOSINOPHILS # (AUTO) 0.1 X10'3 (0-0.9); HEMOGLOBIN 14.8 g/dl (14.0-17.9); LYMPHOCYTES # (AUTO) 1.9 X10'3 (1.1-4.8); MONOCYTES # (AUTO) 0.5 X10'3 (0-0.9); WHITE BLOOD COUNT 3.9 X10'3 (4.5-11.0)
[2024-11-15 16:44] LABS: EOSINOPHILS % (AUTO) 1.7 % (0-6); HEMATOCRIT 42.8 % (42.0-52.0); LYMPHOCYTES % (AUTO) 47.7 % (21-51); MEAN CORPUSCULAR HEMOGLOBIN 35.5 PG (27.0-31.0); MEAN CORPUSCULAR HGB CONC 34.5 g/dL (33.0-36.5); MEAN CORPUSCULAR VOLUME 102.9 FL (78-98); MEAN PLATELET VOLUME 8.6 FL (7.4-10.4); NEUTROPHILS # (AUTO) 1.4 X10'3 (1.8-7.7); NEUTROPHILS % (AUTO) 36.1 % (42-75); PLATELET COUNT 55 X10'3 (140-440); RED BLOOD COUNT 4.16 X10'6 (4.70-6.10); RED CELL DISTRIBUTION WIDTH 14.3 % (11.5-14.5)
[2024-11-15 16:52] LABS: ALBUMIN 3.7 G/DL (3.4-5.0); ANION GAP 14 (8-16); BLOOD UREA NITROGEN 4 MG/DL (7-18); BUN/CREATININE RATIO 4.9 (10.0-20.0); CALCIUM 8.3 MG/DL (8.5-10.1); CHLORIDE 98 MMOL/L (99-107); CREATININE 0.82 MG/DL (0.60-1.10); GLUCOSE 102 MG/DL (70-104); SODIUM 137 MMOL/L (135-145); TOTAL CARBON DIOXIDE 25.1 MMOL/L (24-32); eGFR > 90 ML/MIN
[2024-11-15 17:00] LABS: POTASSIUM 2.6 MMOL/L (3.5-5.1)
[2024-11-15] MEDS: magnesium sulf-water 2g/50mL 50 ML IV ONE (17:29)
[2024-11-15] MEDS: potassium Cl 20 mEq SR tablet PO ONE (17:29)
[2024-11-15] MEDS: potassium CL 10mEq/100ml bag 100 ML IV ONE (17:29)
[2024-11-15 17:31] LABS: MAGNESIUM 1.3 MG/DL (1.5-2.4)
[2024-11-15 17:36] LABS: ETHANOL 348 MG/DL (<10)
[2024-11-15] MEDS ORDERED: acetaminophen 325mg tablet PO PRN ×2 (17:50)
[2024-11-15] MEDS ORDERED: morphine 2 MG/ML inj. syringe IV PRN (17:50)
[2024-11-15] MEDS ORDERED: HYDROcodone/acetaminophen 5mg/325mg tablet PO PRN (17:50)
[2024-11-15] MEDS ORDERED: magnesium Cl slow-release 64mg tablet PO PRN (17:50)
[2024-11-15] MEDS ORDERED: potassium Cl 20 mEq SR tablet PO PRN ×2 (17:50)
[2024-11-15] MEDS ORDERED: haloperidol 5mg tablet PO PRN (17:55)
[2024-11-15] MEDS ORDERED: LORazepam 2 mg/ml vial IV PRN (17:55)
[2024-11-15] MEDS ORDERED: haloperidol lactate 5mg/ml inj IM PRN (17:55)
[2024-11-15] MEDS: nicotine 14mg patch - 24hr TD SCH (18:30)
[2024-11-15 18:33] LABS: ALANINE AMINOTRANSFERASE 58 U/L (12-78); ALBUMIN/GLOBULIN RATIO 0.9 (1.1-1.5); ALKALINE PHOSPHATASE 130 IU/L (46-116); ASPARTATE AMINO TRANSFERASE 196 U/L (10-37); BILIRUBIN,DIRECT 0.9 MG/DL (0-0.3); BILIRUBIN,TOTAL 1.7 MG/DL (0.1-1.0); TOTAL PROTEIN 7.7 G/DL (6.4-8.2)
--- NOTE | 2024-11-15 18:41 | HISTORY AND PHYSICAL-Residence ---
History & Physical Providers to CC Resident Creating Document: JOSLYN RODRIGUEZ RES ~ History of Present Illness Primary Medical Doctor: NONE Reason for Admit\Complaint: Neck pain History of Present Illness 54-year-old male patient with a past medical history of alcohol abuse presents to the hospital due to complaints of acute onset left-sided neck pain leading to associated left upper and lower limb neuropathic pain. He was at his friend's house today morning, drinking alcohol when suddenly his neck hurting on the left side leading to associated sharp pains down his left upper arm and lower limb and this further led reduced movement of his neck to the right which appears to be more voluntary than involuntary. Patient is an alcoholic, drinks about half a gal of vodka every day. Lives alone at home with his dogs as his roommate travels around for work. On further questioning, he reports nonspecific symptoms such as daily bowel movement to be watery, wakes up in the morning with shortness of breath the feels like chest tightness and eventually leads to nausea and vomiting. The vomitus contains gastric acid with the associated burning in the chest. He states that about a few months ago he came into the ER and was found to be in AFib with RVR. His daughter and the daughter's friend are at bedside who further report that the patient has not been eating and has been drinking about half a gal of vodka every day. Allergies: Coded Allergies: No Known Allergies (Unverified , 12/19/23) Home Medications Home Medications Active Cyclobenzaprine* (Cyclobenzaprine HCl) 10 Mg Tablet 1 Tab PO Q8H 10 Days Cephalexin (Cephalexin HCl) 500 Mg Capsule 1 Cap PO Q6H Ativan (Lorazepam) 1 Mg Tablet 1 Tab PO Q12H PRN Hydrocodon-Acetaminophn 10-325 tablet (Acetaminophen/Hydrocodone Bitart) 10mg- 325mg Tablet 1 Tab PO Q4H PRN Acamprosate Calcium 333 Mg Tablet.dr 2 Tab PO Q8H 30 Days Ondansetron Odt (Ondansetron HCl) 8 Mg Tab.rapdis 1 Tab PO Q8H 20 Days Narcan (Naloxone HCl) 4 Mg/Actuation Orosi 1 Sprays BOTHNARES ONCE 14 Days Past Medical History Past Medical History Alcohol abuse disorder Past Surgical History Surgical History Comment Six left kneecap surgery Family History Family History: Patient reports no known family medical history. Past Social History Social History Comment Smokes half a pack of cigarettes per day for the last 30 years; 15 pack-year history Drinks about half a gal of vodka every day Lives at home alone with his dogs. He is able to ambulate on his own in his independent. He has not officially employed currently. Smoking: Cigarettes Alcohol Use: Abuse Drug Use: Marijuana Lives with: Family Lives In: Home ROS ROS As stated above in the HPI, otherwise all systems are reviewed and negative. Exam Vitals: Vital Signs Date Time Temp Pulse Resp B/P (MAP) Pulse Ox O2 Delivery O2 Flow Rate FiO2 11/15/24 17:16 57 16 136/82 97 General: General: Awake and Alert, currently drunk HEENT: Conjunctiva pink, Sclera injected, Mucus Membranes moist. Chin slightly turned to the left but easily able to rotate manually to either sites but limited movement of the head anterior and posteriorly. Resp: Unlabored. Lungs clear to auscultation bilaterally. Heart: Regular Rate and rhythm, normal S1 and S2 without murmur, rub or gallop. Abdomen: Distended, abdominal hernia repair incision scar in the midline, persistent epigastric hernia present. No ascites noted. Soft and nontender. Bowel sounds present Extremities: No cyanosis,clubbing or edema. Left knee surgical scar present CLERK: Conscious, coherent, alert and oriented x4. No motor or sensory deficits. No cranial nerve deficits. Skin: Warm and Dry. Diagnostic Data Last Recorded Lab Results: 11/15/24 1630 11/15/24 1630 Diagnostic Data: Laboratory Tests Test 11/15/24 15:18 Prothrombin Time 11.6 SECONDS (9.0-12.0) INR International Normalized Ratio 1.1 INR Activated Partial Thromboplast Time 30 SECONDS (22-32) Coagulation Comments Counseling Services Smoking & Tobacco Cessation: 3-10 Minutes Advance Care Planning Advanced Care plannin - 30 Minutes Additional Plan 1. Alcohol abuse disorder: Pancytopenia likely secondary to above Microcytic and hypochromic anemia Electrolyte disturbance including hypokalemia and hypomagnesemia secondary to above as well Protonix 40 mg daily Follow up ultrasound abdomen for liver cirrhosis, but albumin and INR within normal limits Replacement of electrolytes per protocol. Received 10 mEq potassium plus 20 mEq p.o. potassium in the ER. Ongoing 1 g magnesium IV. Repeat potassium and Mag in 4 hours Thiamine and folic acid we will be given Follow tox screen Substance abuse navigator consulted 2. Possible torticollis/neck spasm: Likely hypokalemia induced Follow closely after correction of potassium for resolution Pain management 3. History of atrial fibrillation: Reviewed all records are not EMR, he was in atrial flutter on 08/08/2024 He has never had the same rhythm again from the EKGs reviewed on our EMR up to the last three years Continue telemetry monitoring 4. Hyperbilirubinemia: Elevated direct bilirubin with elevated alkaline phosphatase as well Follow ultrasound abdomen Lines: PIV Code status: Full code DVT prophylaxis: Heparin Diet: Regular Joslyn Rodriguez PGY2, Internal medicine resident Date of Service: November 15, 2024 Billing Provider: CYRUS STEARNS MD Common Visit Codes: 37149-[id number] INP/OBS CARE (HIGH) Secondary Visit Codes: 73630-[id number] CHNG SMOKING 3-10M, 22052-[id number] CARE PLAN 30 MINUTES JOSLYN RODRIGUEZ, RES November 15, 2024 18:41 CYRUS STEARNS MD November 15, 2024 19:08
[2024-11-15] MEDS ORDERED: pantoprazole 40MG/NS 100ML BAG 100 ML IV SCH ×2 (18:45→20:00)
[2024-11-15] MEDS: morphine 2 MG/ML inj. syringe IV PRN (19:07)
[2024-11-15] MEDS: heparin, porcine 5000 units/ml vial SQ SCH (20:00)
[2024-11-15] MEDS: potassium Cl 20mEq in NS 1,000 ML IV SCH (20:07)
[2024-11-15] MEDS: folic acid 1mg/0.2ml inj IV SCH (20:20)
[2024-11-15] MEDS: thiamine 100mg/ml 2ml inj. IV SCH (20:20)
[2024-11-15] MEDS: pantoprazole 40 MG vial IV SCH (20:34)
[2024-11-15] MEDS ORDERED: NO HOME MEDS (22:00)
[2024-11-15 22:16] VITALS: BP 171/127; PULSE 108; RESP 22; TEMP 98.1; O2SAT 98
[2024-11-15] MEDS: GADOTERATE MEGLUMINE 7.5 MMOL/15 ML VIAL IV ONE (22:26)
[2024-11-15] MEDS: HYDROcodone/acetaminophen 10/325mg tab PO PRN (22:28)
--- NOTE | 2024-11-15 22:56 | RADIOLOGY REPORT ---
PROCEDURE: MR MRI HEAD INDICATION: stroke like symptoms EXAM DATE: 11/15/2024 09:04 PM COMPARISON: None TECHNIQUE: MRI of the brain without intravenous contrast. FINDINGS: Diffusion weighted images of the brain demonstrate no evidence of acute infarction. There is no evidence of intracranial hemorrhage, infarct, extra-axial collection, mass effect, midli ne shift, herniation or hydrocephalus. The ventricles, sulci and cisterns appear age appropriate. Visualized paranasal sinuses and mastoid air cells are clear. Orbits appear unremarkable. Soft tissue s and osseous structures are unremarkable. IMPRESSION: No acute intracranial abnormality.
[2024-11-15] MEDS: LORazepam 1 MG tablet PO PRN (22:59)
--- NOTE | 2024-11-15 23:07 | RADIOLOGY REPORT ---
PROCEDURE: MR MRI C SPINE INDICATION: stroke like symptoms, neck pain EXAM DATE: 11/15/2024 09:04 PM COMPARISON: None TECHNIQUE: MRI cervical spine without intravenous contrast. FINDINGS: There is normal alignment of the cervical spine. The cervical vertebral bodies are normal in appearan ce. No marrow signal abnormality/marrow edema or abnormal enhancement noted. Paraspinal soft tissues appear unremarkable. There is mild cord compression at C5-C6 without cord signal abnormality. The cervical and visualized upper thoracic spinal cord (down to T3-T4) otherwise appears unremarkable. C1-C2: Unremarkable. C2-C3: Minimal posterior disc-osteophyte without spinal canal or neural foraminal stenosis. C3-C4: Small posterior disc-osteophyte without spinal canal or neural foraminal stenosis. C4-C5: Mild posterior disc-osteophyte without spinal canal or neural foraminal stenosis. C5-C6: Degenerative disc disease. Prominent broad-based posterior disc-osteophyte, uncovertebral osto ephytes larger on the right side, mild facet hypertrophy and mild ligamentum flavum thickening. There is circumferential effacement of the thecal sac and mild compression of the spinal cord without cord signal abnormality. Zdeujmct-cg-drmfbu spinal canal stenosis. Severe bilateral neural foraminal sten osis greater on the right side with presumed contact of the right greater than left C6 nerve roots. C6-C7: Mild posterior disc-osteophyte without spinal canal or neural foraminal stenosis. C7-T1: Unremarkable. IMPRESSION: Cervical spondylosis predominantly at C5-C6 were there is nifirrux-yp-mklwro spinal canal stenosis wi th mild cord compression without cord signal abnormality. Bilateral neural foraminal stenoses at this level.
[2024-11-15 23:23] VITALS: RESP 16; O2SAT 98
[2024-11-15] MEDS: ondansetron/PF 4mg/2ml inj IV PRN (23:46)
[2024-11-16] VITALS (8 sets, daily range): BP systolic 112–147; BP diastolic 74–97; PULSE 70–96; RESP 14–20; TEMP 98.1–98.7; O2SAT 91–95
[2024-11-16 06:09] LABS: BASOPHILS % (AUTO) 1.4 % (0-1); EOSINOPHILS # (AUTO) 0.1 X10'3 (0-0.9); EOSINOPHILS % (AUTO) 1.6 % (0-6); HEMATOCRIT 36.7 % (42.0-52.0); HEMOGLOBIN 12.7 g/dl (14.0-17.9); LYMPHOCYTES # (AUTO) 1.3 X10'3 (1.1-4.8); LYMPHOCYTES % (AUTO) 40.7 % (21-51); MEAN CORPUSCULAR HEMOGLOBIN 36.1 PG (27.0-31.0); MEAN CORPUSCULAR HGB CONC 34.6 g/dL (33.0-36.5); MEAN CORPUSCULAR VOLUME 104.4 FL (78-98); MEAN PLATELET VOLUME 8.5 FL (7.4-10.4); MONOCYTES # (AUTO) 0.4 X10'3 (0-0.9); MONOCYTES % (AUTO) 12.8 % (2-12); NEUTROPHILS # (AUTO) 1.4 X10'3 (1.8-7.7); NEUTROPHILS % (AUTO) 43.5 % (42-75); RED BLOOD COUNT 3.51 X10'6 (4.70-6.10); RED CELL DISTRIBUTION WIDTH 14.2 % (11.5-14.5); WHITE BLOOD COUNT 3.2 X10'3 (4.5-11.0)
[2024-11-16 06:19] LABS: ALANINE AMINOTRANSFERASE 44 U/L (12-78); ALBUMIN 2.9 G/DL (3.4-5.0); ALBUMIN/GLOBULIN RATIO 0.9 (1.1-1.5); ALKALINE PHOSPHATASE 105 IU/L (46-116); ANION GAP 11 (8-16); ASPARTATE AMINO TRANSFERASE 140 U/L (10-37); BILIRUBIN,TOTAL 1.4 MG/DL (0.1-1.0); BLOOD UREA NITROGEN 4 MG/DL (7-18); BUN/CREATININE RATIO 6.3 (10.0-20.0); CALCIUM 7.5 MG/DL (8.5-10.1); CHLORIDE 101 MMOL/L (99-107); CREATININE 0.63 MG/DL (0.60-1.10); GLUCOSE 71 MG/DL (70-104); MAGNESIUM 1.4 MG/DL (1.5-2.4); PHOSPHORUS 3.8 MG/DL (2.3-4.5); SODIUM 140 MMOL/L (135-145); TOTAL CARBON DIOXIDE 28.5 MMOL/L (24-32); TOTAL PROTEIN 6.1 G/DL (6.4-8.2); eCRCL 144 ML/MIN; eGFR > 90 ML/MIN
[2024-11-16 06:23] LABS: POTASSIUM 2.8 MMOL/L (3.5-5.1)
[2024-11-16 06:37] LABS: PLATELET COUNT 36 X10'3 (140-440)
--- NOTE | 2024-11-16 07:39 | RADIOLOGY REPORT ---
INDICATION: Abdominal pain TECHNIQUE: Multiple real-time sonographic images were obtained of the right upper quadrant. COMPARISON: ULTRASOUND OF ABDOMEN on DOS: 11/06/22, ULTRASOUND OF ABDOMEN on DOS: 07/18/20 FINDINGS: The liver demonstrates increased echotexture without focal mass lesions. The liver measure s 18.3 cm. There is no intrahepatic or extrahepatic ductal dilatation. The common duct measures 0.5 cm. The gallbladder is without evidence of stone or sludge. The gallbladder wall measures 0.3 cm and is w ithin normal limits. The right kidney measures 11.5 cm. The right kidney is normal in contour, size, and shape. The echoge nicity is normal. There is no hydronephrosis. The pancreas is not well visualized due to overlying bowel gas. IMPRESSION: Hepatic steatosis and hepatomegaly.
[2024-11-16] MEDS: multivitamins, therapeutics tablet PO SCH (08:29)
[2024-11-16] MEDS: potassium Cl 20 mEq SR tablet PO STA (08:49)
[2024-11-16] MEDS: magnesium sulf-water 4G/100mL 100 ML IV PRN (09:27)
[2024-11-16] MEDS: potassium Cl 40MEQ/1/2NS 520ml 520 ML IV PRN (09:30)
--- NOTE | 2024-11-16 12:32 | PROGRESS NOTE- Residence ---
Progress Note - Resident Providers to CC Resident Creating Document: JOSLYN RODRIGUEZ RES ~ Central Line/PICC still needed: No Patel-Non Protocol Patel Indications Met/Not Met: F/C Indications Not Met Antibiotic Timeout Antibiotic Ordered?: No Subjective Patient complaining of nausea and vomiting. Cannot tolerate any PO medciations. Tried PO Potassium but vomited. Zofran minimally improves symptoms. Daughter an daughters friend at bedside. Explained in great detail the imaging studies, labs and complications from alcohol abuse. Recommended following up with PCP, neurosurgeon for cervical stenosis, and recommend joing AA meetings or preferably, inpatient rehab. Explained in detail to the patient regarding complications of alcohol abuse. Objective Vital Signs Date Time Temp Pulse Resp B/P (MAP) Pulse Ox O2 Delivery O2 Flow Rate FiO2 11/16/24 10:00 98.2 89 16 147/90 (109) 94 Room Air Result Diagram: 11/16/24 0537 11/16/24 0537 General: Awake and Alert, no acute distress. HEENT: Conjunctiva pink, Sclera clear, Mucus Membranes moist. Neck: Supple without masses and tenderness. Resp: Unlabored. Mild wheezing Heart: Regular Rate and rhythm, normal S1 and S2 without murmur, rub or gallop. Abdomen: Soft and non tender no organomegaly Extremities: No cyanosis,clubbing or edema. Skin: Warm and Dry. Coagulation Studies Laboratory Tests Test 11/15/24 15:18 Prothrombin Time 11.6 SECONDS (9.0-12.0) INR International Normalized Ratio 1.1 INR Activated Partial Thromboplast Time 30 SECONDS (22-32) Coagulation Comments Assessment Assessment 54 year old male patient came into the hospital with complaints of left neck pain. He was found to be acutely drunk and with electrolyte abnormalities including hypokalemia and hypomagenisia. He is currenytly being managed for the symptomatic electrolyte imbalances. Plan Plan 1. Alcohol abuse disorder: Pancytopenia likely secondary to above Macrocytic and hyperchromic anemia Electrolyte disturbance including hypokalemia and hypomagnesemia secondary to above as well Protonix 40 mg daily Heaptic steatosis on the USG of abdomen with heaptomegaly. No evidence for cirrhosis. Potassium and magnesium continue to be low. Unable to tolerate PO 40mEQ. Replace Mag to maintain >2 to help correct the potasium. Repalce a per protocol Thiamine and folic acid we will be given Follow tox screen Substance abuse navigator consulted 2. Possible torticollis/neck spasm: Likely hypokalemia induced Follow closely after correction of potassium for resolution Pain management 3. History of atrial fibrillation: Ruled out Reviewed all records are not EMR, he was in atrial flutter on 08/08/2024 He has never had the same rhythm again from the EKGs reviewed on our EMR up to the last three years Continue telemetry monitoring 4. Hyperbilirubinemia: Elevated direct bilirubin with elevated alkaline phosphatase as well USG abdomen normal with no CBD dilation No ascites Lines: PIV Code status: Full code DVT prophylaxis: Heparin Diet: Regular Joslyn Rodriguez PGY2, Internal medicine resident Date of Service: November 16, 2024 Billing Provider: CYRUS STEARNS MD Common Visit Codes: [id number] INP/OBS CARE(HIGH) JOSLYN RODRIGUEZ, MAYA November 16, 2024 12:32 CYRUS STEARNS MD November 16, 2024 20:21
[2024-11-16] MEDS ORDERED: albuterol 2.5 MG/3 ML nebule NEB PRN (12:35)
[2024-11-16] MEDS: metoclopramide 5 mg/ml inj IV PRN (13:18)
[2024-11-16] MEDS: magnesium sulf-water 2g/50mL 50 ML IV PRN (14:48)
[2024-11-16] MEDS ORDERED: ipratropium/albuterol 3ml nebule NEB SCH (15:00)
[2024-11-16] MEDS ORDERED: ipratropium/albuterol 3ml nebule NEB PRN (17:05)
[2024-11-16] MEDS: pantoprazole 40 MG vial IV SCH (19:26)
--- NOTE | 2024-11-16 20:32 | CARDIOLOGY REPORT ---
APPROVED REPORT EXAM: Comprehensive 2D, Doppler, and color-flow Echocardiogram. Patient Location: 4[address] Blood Pressure: 147/90 mmHg Heart Rate: 79 bpm Rhythm: Sinus Rhythm Indications CVA/TIA ETOH ALOC Hypokalemia Alcohol Abuse Disorder Public Relations Associate: None Previous echo: 08/08/2024 [facility] EF:55-60% 2D Dimensions RVDd 3.9 cm LA Diam4.1 cm RA Minor4.5 cmLVOT Diameter 2.19 (1.8-2.4cm) CO 6.3 L/min M-Mode Dimensions RVDd 3.21 (2.1-3.2cm) Left Atrium(MM) 4.45 (2.5-4.0cm) IVSd 1.44 (0.7-1.1cm) LVDd 5.77 (4.0-5.6cm) Aortic Root 4.08 (2.2-3.7cm) PWd 1.44 (0.7-1.1cm) Aortic Cusp Exc 2.27 (1.5-2.0cm) IVSs 1.55 cm MV EPSS 1.7 (<0.5cm) LVDs 4.33 (2.0-3.8cm) FS (%) 25 % PWs 1.59 cm ESV(Teich) 84.5 ml LVEF(%) 49 (>50%) Aortic Valve AoV Peak Fenrando. 179.9 cm/s AoV VTI 34.0 cm AO Peak GR. 12.9 mmHg AO Mean GR. 7 mmHg LVOT VTI 24.26 cm LVOT Peak Fernando. 117.6 cm/s SLIM(VTI)/BSA 2.69 cm2/m2 SLIM (VTI) 2.69 cm2 Mitral Valve MV E Velocity 64.7 cm/s MV Peak Gr. 4 mmHg MV DECEL TIME 204 ms MV A Velocity 91.3 cm/s MV Mean Gr. 2 mmHg MV PHT 68 ms E/A Ratio 0.7 MVA (PHT) 3.24 cm2 MV VMax98.8 cm/sMV VMean70.1 cm/s MVA VTI3.47 cm2MV VTI26.3 cm TDI Medial E' P. V 13.68 cm/s E/Medial E' 4.7 Tricuspid Valve TR P. Velocity 252 cm/s RAP ESTIMATE 10 mmHg TR Peak Gr. 25 mmHg RVSP 35 mmHg LEFT VENTRICLE The LV is dilated in size with mildly reduced function. Mild concentric hypertrophy. Overall LVEF is about 50-55%. RIGHT VENTRICLE Right ventricle is moderately dilated with reduced function. Estimated PA systolic pressure is 35 mmH g. ATRIA Left atrium is mildly dilated. Right atrium is moderately dilated. AORTIC VALVE Trileaflet AV appears sclerotic without stenosis. Mild to moderate insufficiency. MITRAL VALVE Mild MV annular calcification without stenosis. Trace regurgitation. PULMONIC VALVE TV appears structurally normal with mild regurgitation. GREAT VESSELS Aortic root appears to be dilated. It measures 4.08 cm. IVC is not well visualized. PERICARDIUM Normal pericardium. No pericardial effusion seen. Other Information Study Quality: Fair Conclusion Overall LVEF is about 50-55%. The LV is dilated in size with mildly reduced function. Mild concentric hypertrophy. Right ventricle is moderately dilated with reduced function. Estimated PA systolic pressure is 35 mmH g. Trileaflet AV appears sclerotic without stenosis. Mild to moderate insufficiency. Mild MV annular calcification without stenosis. Trace regurgitation. TV appears structurally normal with mild regurgitation. Aortic root appears to be dilated. It measures 4.08 cm. Normal pericardium. No pericardial effusion seen.
[2024-11-19] MEDS ORDERED: thiamine 100mg tablet PO SCH (08:00)
[2024-11-20] MEDS ORDERED: folic acid 1mg tablet PO SCH (08:00)
== END 2024-11-17 02:45 | disposition left against medical advice (07) | DRG 351 ==
LOC: ER 14:40 → ED HOLD 17:54 → ORTHO 4S 22:13
PROVIDERS: ADMIT Internal Medicine; ATTEND Internal Medicine
PROC: B3251ZZ Computerized Tomography (CT Scan) of Bilateral Common Carotid Arteries using Low Osmolar Contrast (ICD-10-PCS; principal; 2024-11-15)
PROC: B32G1ZZ Computerized Tomography (CT Scan) of Bilateral Vertebral Arteries using Low Osmolar Contrast (ICD-10-PCS; 2024-11-15)
PROC: B32R1ZZ Computerized Tomography (CT Scan) of Intracranial Arteries using Low Osmolar Contrast (ICD-10-PCS; 2024-11-15)
PROC: B3281ZZ Computerized Tomography (CT Scan) of Bilateral Internal Carotid Arteries using Low Osmolar Contrast (ICD-10-PCS; 2024-11-15)
DX: M62.838 Other muscle spasm (principal); D61.818 Other pancytopenia; M43.6 Torticollis; E80.6 Other disorders of bilirubin metabolism; E83.42 Hypomagnesemia; E87.6 Hypokalemia; R74.8 Abnormal levels of other serum enzymes; Y90.8 Blood alcohol level of 240 mg/100 ml or more; F17.210 Nicotine dependence, cigarettes, uncomplicated; G89.29 Other chronic pain; M54.9 Dorsalgia, unspecified; F10.120 Alcohol abuse with intoxication, uncomplicated; Z86.73 Personal history of transient ischemic attack (TIA), and cerebral infarction without residual deficits
CPT/HCPCS: 36415; 70450; 70496; 70498; 70553; 71045; 72125; 72156; 76700; 80048; 80053; 80076; 80320; 82948; 83735; 84100; 84132; 85025; 85610; 85730; 87081; 93005; 93306; 94760; 96365; 96367; 96375; 99291; G0378; J1171; J2270; J2405; J2470; J2765; J3411; J3475; J3480; J3490; Q9967

== ENCOUNTER 2024-11-17 15:45 | Emergency (ER) | payer MEDICAID ==
[~2024-11-17] VITALS: Ht 183.5 cm; Wt 113.4 kg
[~2024-11-17 15:45] MED LIST changes: -ACAM333T8 PO; -CEPH500C2 PO; -CYCL-1 PO; -HYDR-3972 PO; -LORA-269 PO; -NALO4SPR BOTHNARES; +NO HOME MEDS; -ONDA-245 PO
[2024-11-17 15:54] VITALS: TEMP 97.2
--- NOTE | 2024-11-17 16:04 | ELECTROCARDIOGRAPH REPORT ---
[facility] Test Date: 2024-11-17 Test Time: 15:57:05 Pat Name: STEVEN DEUTSCH Department: EMERGENCY ROOM Room: Gender: M Searchlight Operator: JOVITA : 1970 Requested By: MANNY LACKEY Order Number: [id number] Reading MD: Measurements Intervals [place] Rate: 72 P: 52 AL: 196 QRS: 49 QRSD: 98 T: 49 QT: 442 QTc: 484 Interpretive Statements Sinus rhythm Borderline prolonged QT interval Please click the below link to view image of tracing.
--- NOTE | 2024-11-17 16:33 | RADIOLOGY REPORT ---
CT CT STROKE ALERT Indication: Stroke Alert EXAM DATE: 11/17/2024 04:09 PM COMPARISON: CT CT STROKE ALERT on DOS: 11/15/24 TECHNIQUE: CT of the head without intravenous contrast. RADIATION DOSE: CTDIvol: 60 mGy, DLP: 1131 mGy*cm FINDINGS: There is no intracranial hemorrhage. There is no extra-axial fluid, mass, mass effect or midline shif t. The ventricles are midline and normal in size. Basilar cisterns are patent. There are mild periven tricular and subcortical white matter chronic microvascular ischemic changes. Mild global cerebral vo lume loss. The paranasal sinuses and mastoids are well-pneumatized. Imaged portion of the orbits are unremarkabl e. IMPRESSION: 1. No intracranial hemorrhage or mass effect. 2. Mild chronic microvascular ischemic changes. 3. Mild global cerebral volume loss.
[2024-11-17 16:56] LABS: EOSINOPHILS # (AUTO) 0.1 X10'3 (0-0.9); HEMOGLOBIN 13.2 g/dl (14.0-17.9); LYMPHOCYTES # (AUTO) 0.9 X10'3 (1.1-4.8); LYMPHOCYTES % (AUTO) 30.2 % (21-51); MEAN CORPUSCULAR HGB CONC 34.2 g/dL (33.0-36.5); MONOCYTES # (AUTO) 0.5 X10'3 (0-0.9)
[2024-11-17 16:57] LABS: BASOPHILS % (AUTO) 1.2 % (0-1); EOSINOPHILS % (AUTO) 1.7 % (0-6); HEMATOCRIT 38.7 % (42.0-52.0); MEAN CORPUSCULAR HEMOGLOBIN 35.8 PG (27.0-31.0); MEAN CORPUSCULAR VOLUME 104.6 FL (78-98); MONOCYTES % (AUTO) 15.4 % (2-12); NEUTROPHILS # (AUTO) 1.6 X10'3 (1.8-7.7); NEUTROPHILS % (AUTO) 51.5 % (42-75); RED BLOOD COUNT 3.69 X10'6 (4.70-6.10); RED CELL DISTRIBUTION WIDTH 14.2 % (11.5-14.5); WHITE BLOOD COUNT 3.1 X10'3 (4.5-11.0)
--- NOTE | 2024-11-17 16:58 | RADIOLOGY REPORT ---
DI CHEST,SINGLE VIEW, HISTORY: Stroke Alert COMPARISON: DI CHEST,SINGLE VIEW on DOS: 11/15/24, DI CHEST,SINGLE VIEW on DOS: 10/15/24, DI CHEST,SING LE VIEW on DOS: 08/08/24 DI CHEST,SINGLE VIEW on DOS: 11/15/24, DI CHEST,SINGLE VIEW on DOS: 10/15/24, DI CHEST,SINGLE VIEW on D OS: 08/08/24 TECHNICAL DATA: 1 view of the chest was obtained. FINDINGS: Lines and tubes: None Cardiomediastinal silhouette: normal Pulmonary vasculature: normal Lung expansion: normal Lung airspace: normal Lung interstitium: normal Pleura: normal Pneumothorax: no Bones: Unremarkable Other: no IMPRESSION: No acute intrathoracic abnormality.
--- NOTE | 2024-11-17 17:01 | Physician Documentation ---
History of Present Illness ~ Chief Complaint: Stroke Alert Stated Complaint: STROKE Time Seen by MD: 16:02 Primary Medical Doctor: NONE Mode of Arrival: EMS HPI 54-year-old male presenting with left-sided pain and weakness. Patient states that he is a heavy alcohol drinker and drinks about 10-12 shots of vodka a day. He states that he woke up this morning and had his usual amount of alcohol and then started watching some TV. While he was on the couch his head suddenly cocked to the side and he start feeling this pain and weakness over his left side. He states that he has chronic neck pain in his neck is very painful. Also complains of a lot of anxiety and states that he is shaking. He feels like he is withdrawing from alcohol as his last shot was at about 8:00 a.m. this morning. He denies any nausea, vomiting or any other associated symptoms. Medication Reconciliation Allergies: Coded Allergies: No Known Allergies (Unverified , 12/19/23) Miscellaneous Medications Home Med List (No Home Medications), (Reported) Discontinued Medications Acamprosate Calcium (Acamprosate Calcium), 2 TAB PO Q8H Discontinued Reason: patient no longer taking Cephalexin Monohydrate (Cephalexin), 1 CAP PO Q6H Discontinued Reason: patient no longer taking Cyclobenzaprine* (Cyclobenzaprine*), 1 TAB PO Q8H Discontinued Reason: patient no longer taking Hydrocodone Bit/Acetaminophen (Hydrocodon-Acetaminophn 10-325 tablet), 1 TAB PO Q4H PRN for SEVERE PAIN 7-10 Discontinued Reason: patient no longer taking Lorazepam (Ativan), 1 TAB PO Q12H PRN for delirium/tremors Discontinued Reason: patient no longer taking Naloxone HCl (Narcan), 1 SPRAYS BOTHNARES ONCE Discontinued Reason: patient no longer taking Ondansetron 8mg ODT (Ondansetron Odt), 1 TAB PO Q8H Discontinued Reason: patient no longer taking Past Medical History Past Medical History: CVA/TIA/Stroke, Chronic Back Pain, *PSYCH* Past Surgical History: orthopedic surgeries, other Patient History: Patient reports no known family medical history. Alcohol Use: Abuse Drug Use: marijuana Lives with: Family Lives In: Home Physical Exam Vital Signs: Temperature: 97.2, Heart Rate: 70, Respiratory Rate: 16, BP: 113/81, Pulse Oximetry: 97, Weight: 113.400 Oxygen Flow Rate: 0 General Appearance I have reviewed the triage vitals. CONST: Looks disheveled and unkempt. Intoxicated HENT: Head Atraumatic EYES: Pupils are equal, round and reactive to light. Normal conjunctiva NECK: Normal range of motion. Supple. CARDIO: Normal rate and regular rhythm. No murmurs, rubs, or gallops. S1, S2. PULM/CHEST: No respiratory distress. Lungs clear to auscultation. No wheeze ABD: Soft and nontender. Nondistended. Bowel sounds normal. No guarding. : Exam deferred MSK: No edema. No deformity. NEURO: Alert and oriented to person, place and time. Moving all extremities. Intoxicated SKIN: Warm and dry. PSYCH: Normal mood and affect. Good eye contact. Progress Results/Orders Results/Orders Orders - MANNY LACKEY MD Monitor (11/17/24 16:02) 2 Large Bore Ivs (11/17/24 16:02) Chest,Single View (11/17/24 16:45) Accucheck (11/17/24 16:02) Ct Stroke Alert (11/17/24 16:02) Cta Neck/Head (11/17/24 18:30) Completed Orders - MANNY LACKEY MD Cbc/Diff (11/17/24 16:02) Electrocardiogram (11/17/24 16:02) Chest,Single View (11/17/24 16:45) Ct Stroke Alert (11/17/24 16:02) BMP (11/17/24 16:02) PTT (11/17/24 16:02) Pt Inr (11/17/24 16:02) Ethanol (11/17/24 16:02) Drug Screen, Urine (11/17/24 16:02) Normal Saline 1000ml (Sodium Chloride 10 (11/17/24 17:20) Thiamine Inj. (Thiamine Inj.) (11/17/24 17:20) Folic Acid Inj. (Folic Acid Inj.) (11/17/24 17:20) Diazepam Inj (Valium Inj) (11/17/24 17:20) Ketorolac Trometh 30mg/Ml Vial (Toradol (11/17/24 17:20) Potassium Cl Sr Tablet (K-Dur Tablet) (11/17/24 17:19) Potassium Cl 10meq/100ml Bag (Potassium (11/17/24 17:20) Cta Neck/Head (11/17/24 18:30) Iohexol 350mg/Ml 100ml (Omnipaque 350mg/ (11/17/24 17:51) Liver Panel (11/17/24 16:36) MG (11/17/24 16:36) Vital Signs 11/17/24 11/17/24 11/17/24 11/17/24 15:54 16:11 16:27 16:27 Temp 97.2 Pulse 72 73 70 Resp 15 18 16 16 B/P (MAP) 131/89 113/81 113/81 (92) Pulse Ox 97 97 97 O2 Flow Rate 0 11/17/24 11/17/24 17:45 17:54 Pulse 85 Resp 18 16 B/P (MAP) 119/76 (90) Pulse Ox 98 O2 Flow Rate 0 Laboratory Tests Test 11/17/24 16:21 11/17/24 16:36 11/17/24 17:55 Glucometer 94 White Blood Count 3.1 L Red Blood Count 3.69 L Hemoglobin 13.2 L Hematocrit 38.7 L Mean Corpuscular Volume 104.6 H Mean Corpuscular Hemoglobin 35.8 H Mean Corpuscular Hemoglobin Concent 34.2 Red Cell Distribution Width 14.2 Platelet Count 40 *L Mean Platelet Volume 10.0 Neutrophils (%) (Auto) 51.5 Lymphocytes (%) (Auto) 30.2 Monocytes (%) (Auto) 15.4 H Eosinophils (%) (Auto) 1.7 Basophils (%) (Auto) 1.2 H Neutrophils # (Auto) 1.6 L Lymphocytes # (Auto) 0.9 L Monocytes # (Auto) 0.5 Eosinophils # (Auto) 0.1 Basophils # (Auto) 0.0 CBC Comment Prothrombin Time 11.4 INR International Normalized Ratio 1.1 Activated Partial Thromboplast Time 31 Coagulation Comments Sodium Level 137 Potassium Level 2.9 *L Chloride Level 98 L Carbon Dioxide Level 28.6 Anion Gap 10 Blood Urea Nitrogen 2 L Creatinine 0.61 Estimated GFR/1.73 m2 > 90 BUN/Creatinine Ratio 3.3 L Glucose Level 82 Calcium Level 7.6 L Magnesium Level 2.1 Total Bilirubin 1.7 H Direct Bilirubin 0.9 H Aspartate Amino Transf (AST/SGOT) 92 H Alanine Aminotransferase (ALT/SGPT) 36 Alkaline Phosphatase 109 Total Protein 6.7 Albumin 3.2 L Globulin 3.5 Albumin/Globulin Ratio 0.9 L Chemistry Comments Ethyl Alcohol Level 207 H Urine Opiates Screen Positive Urine Methadone Screen Negative Urine Fentanyl Screen Negative Urine Barbiturates Screen Negative Urine Phencyclidine Screen Negative Urine Amphetamines Screen Negative Urine Benzodiazepines Screen Negative Urine Cocaine Screen Negative Urine Cannabinoids Screen Negative Drug Screen Comment EKG/XRAY/CT/US/VASC/MRI EKG : Additional Comment EKG as interpreted by ED MD indicates normal sinus rhythm with a rate of 72 beats per minute, no ischemia, normal axis Chest X-Ray : Additional Comments DI CHEST,SINGLE VIEW, HISTORY: Stroke Alert COMPARISON: DI CHEST,SINGLE VIEW on DOS: 11/15/24, DI CHEST,SINGLE VIEW on DOS: 10/15/24, DI CHEST,SINGLE VIEW on DOS: 08/08/24 DI CHEST,SINGLE VIEW on DOS: 11/15/24, DI CHEST,SINGLE VIEW on DOS: 10/15/24, DI CHEST,SINGLE VIEW on DOS: 08/08/24 TECHNICAL DATA: 1 view of the chest was obtained. FINDINGS: Lines and tubes: None Cardiomediastinal silhouette: normal Pulmonary vasculature: normal Lung expansion: normal Lung airspace: normal Lung interstitium: normal Pleura: normal Pneumothorax: no Bones: Unremarkable Other: no IMPRESSION: No acute intrathoracic abnormality. : Impression EXAM: CT CTA NECK/HEAD CLINICAL HISTORY: CVA TECHNIQUE: CT angiogram of the head and neck was performed without and with intravenous contrast. 100 ml of omnipaque 350 was administered intravenously. 3D MIP reconstructed images were created and archived on the PACS system. This exam was performed according to our departmental dose optimization program. Up-to-date CT equipment and radiation dose reduction techniques are utilized as appropriate. COMPARISON: CT CTA NECK/HEAD on DOS: 11/15/24 FINDINGS: CTA head: The distal internal carotid, vertebral, and basilar arteries are patent without focal narrowing or occlusion. The anterior, middle, and posterior cerebral arteries are patent without focal narrowing. No aneurysm or arteriovenous malformation is identified. CTA neck: The aortic arch vessel origins are widely patent. The common carotid and cervical portions of the internal carotid and vertebral arteries are patent without focal narrowing according to NASCET criteria. No aneurysm, AVM, or dissection is identified. The cervical soft tissues are unremarkable. The paranasal sinus and mastoid air cells are clear. The lung apices are clear. The patient is edentulous in the maxilla. There are dental caries and periapical lucencies in posterior right mandibular teeth. Some of the teeth have been removed. Mild Centrilobular emphysema. Minor cervical spondylosis. There is a 1.4 cm low-density left thyroid nodule on series 2, image 25. IMPRESSION: 1. Widely patent arteries in the head and neck without large vessel occlusion, significant stenosis AVM, aneurysm, or dissection. 2. Mild emphysema. 3. There is a 1.4 cm low-density left thyroid nodule. If clinically indicated, this could be further evaluated with nonemergent / outpatient thyroid ultrasound if clinically indicated. 4. Dental caries and periapical lucencies in posterior right mandibular teeth. CT CT STROKE ALERT Indication: Stroke Alert EXAM DATE: 11/17/2024 04:09 PM COMPARISON: CT CT STROKE ALERT on DOS: 11/15/24 TECHNIQUE: CT of the head without intravenous contrast. RADIATION DOSE: CTDIvol: 60 mGy, DLP: 1131 mGy*cm FINDINGS: There is no intracranial hemorrhage. There is no extra-axial fluid, mass, mass effect or midline shift. The ventricles are midline and normal in size. Basilar cisterns are patent. There are mild periventricular and subcortical white matter chronic microvascular ischemic changes. Mild global cerebral volume loss. The paranasal sinuses and mastoids are well-pneumatized. Imaged portion of the orbits are unremarkable. IMPRESSION: 1. No intracranial hemorrhage or mass effect. 2. Mild chronic microvascular ischemic changes. 3. Mild global cerebral volume loss. Medical Decision Making Additional Information 54-year-old male presenting with left-sided weakness. He is also a heavy alcohol user and does appear intoxicated. Workup initiated. CT of the head was unremarkable. His lab workup does indicate severe thrombocytopenia with a platelet low level of 40. He is also hypokalemic with a potassium of 2.9. This was replaced with both oral and IV potassium. Patient was tremulous and was exhibiting signs of withdrawal thus we was given 10 mg of IV Valium, 1 L of normal saline as well as IV thiamine and folate. Given the findings there are plans for admission pending a CTA of the brain as well to rule out any potential CVA. Workup not yet complete inpatient signed out to incoming ED physician. Addendum I received sign-out on this patient at shift change, please see previous information. Briefly: The patient presented as a stroke alert, with left-sided neck pain in possible left-sided weakness. His workup showed hypokalemia. No other acute derangement. Pending CTA head and neck. I did review his chart, including a recent admission for similar symptoms of neck pain and left-sided symptoms. He had an extensive workup including ne urology evaluation and MRI of his head and neck. He did have some spinal stenosis. He left AMA yesterday. 8:00 p.m.: I went to evaluate the patient, and he is not in the room. Nursing staff informs me that he has eloped. I did not see or speak to this patient prior to elopement. Jefferson Galvez MD Departure Disposition: LEFT AWOL/ELOPED Impression: Primary Impression: Neck Pain Additional Impressions: Alcohol withdrawal Left-sided weakness Thrombocytopenia Hypokalemia Referrals: NO PRIMARY CARE PROVIDER (PCP) Critical Care Note Total Time (mins): 35 Critical Care Note The very real possibility of a deterioration of this patient's condition required the highest level of my preparedness for sudden, emergent intervention. I provided critical care services, which included medication orders, frequent reevaluations of the patient's condition and response to treatment, ordering and reviewing test results, and discussing the case with various consultants. Excludes time spent performing separately billable procedures. The critical care time associated with the care of the patient was. Signature Scribe Signature: na Attestation: MANNY Lemus MD November 17, 2024 17:01 JEFFERSON GALVEZ MD November 17, 2024 20:07
[2024-11-17 17:06] LABS: ALBUMIN 3.2 G/DL (3.4-5.0); ANION GAP 10 (8-16); BLOOD UREA NITROGEN 2 MG/DL (7-18); BUN/CREATININE RATIO 3.3 (10.0-20.0); CALCIUM 7.6 MG/DL (8.5-10.1); CHLORIDE 98 MMOL/L (99-107); CREATININE 0.61 MG/DL (0.60-1.10); ETHANOL 207 MG/DL (<10); GLUCOSE 82 MG/DL (70-104); SODIUM 137 MMOL/L (135-145); TOTAL CARBON DIOXIDE 28.6 MMOL/L (24-32); eCRCL 155 ML/MIN; eGFR > 90 ML/MIN
[2024-11-17 17:07] LABS: PLATELET COUNT 40 X10'3 (140-440)
[2024-11-17 17:09] LABS: APTT 31 SECONDS (22-32); INR 1.1 INR; PROTHROMBIN TIME 11.4 SECONDS (9.0-12.0)
[2024-11-17 17:15] LABS: POTASSIUM 2.9 MMOL/L (3.5-5.1)
[2024-11-17] MEDS: thiamine 100mg/ml 2ml inj. IV ONE (17:33)
[2024-11-17] MEDS: potassium CL 10mEq/100ml bag 100 ML IV SCH (17:33)
[2024-11-17] MEDS: normal saline 1000ml 1,000 ML IV ONE (17:36)
[2024-11-17] MEDS: potassium Cl 20 mEq SR tablet PO STA (17:45)
[2024-11-17] MEDS: ketorolac trometh 30MG/ML vial 30 MG/ML VIAL IV ONE (17:45)
[2024-11-17] MEDS: diazepam inj 5 MG/ML inj. IV ONE (17:48)
[2024-11-17] MEDS: folic acid 1mg/0.2ml inj IV ONE (17:51)
[2024-11-17] MEDS ORDERED: iohexol 350MG/ML 100ml bottle IV ONE (17:51)
[2024-11-17 17:54] VITALS: BP 119/76; PULSE 85; RESP 16; O2SAT 98
[2024-11-17 18:08] LABS: ALANINE AMINOTRANSFERASE 36 U/L (12-78); ALBUMIN/GLOBULIN RATIO 0.9 (1.1-1.5); ALKALINE PHOSPHATASE 109 IU/L (46-116); ASPARTATE AMINO TRANSFERASE 92 U/L (10-37); BILIRUBIN,DIRECT 0.9 MG/DL (0-0.3); BILIRUBIN,TOTAL 1.7 MG/DL (0.1-1.0); MAGNESIUM 2.1 MG/DL (1.5-2.4); TOTAL PROTEIN 6.7 G/DL (6.4-8.2)
[2024-11-17 18:29] LABS: URINE AMPHETAMINE SCREEN NEGATIVE (Neg); URINE BARBITUATE SCREEN NEGATIVE (Neg); URINE BENZODIAZEPINES SCREEN NEGATIVE (Neg); URINE CANNABINOID SCREEN NEGATIVE (Neg); URINE COCAINE SCREEN NEGATIVE (Neg); URINE METHADONE SCREEN NEGATIVE (Neg); URINE OPIATE SCREEN POSITIVE (Neg); URINE PHENCYCLIDINE SCREEN NEGATIVE (Neg)
--- NOTE | 2024-11-17 19:39 | RADIOLOGY REPORT ---
EXAM: CT CTA NECK/HEAD CLINICAL HISTORY: CVA TECHNIQUE: CT angiogram of the head and neck was performed without and with intravenous contrast. 100 ml of omnipaque 350 was administered intravenously. 3D MIP reconstructed images were created and arc hived on the PACS system. This exam was performed according to our departmental dose optimization pro gram. Up-to-date CT equipment and radiation dose reduction techniques are utilized as appropriate. COMPARISON: CT CTA NECK/HEAD on DOS: 11/15/24 FINDINGS: CTA head: The distal internal carotid, vertebral, and basilar arteries are patent without focal narrowing or oc clusion. The anterior, middle, and posterior cerebral arteries are patent without focal narrowing. No aneurysm or arteriovenous malformation is identified. CTA neck: The aortic arch vessel origins are widely patent. The common carotid and cervical portions of the int ernal carotid and vertebral arteries are patent without focal narrowing according to NASCET criteria. No aneurysm, AVM, or dissection is identified. The cervical soft tissues are unremarkable. The paranasal sinus and mastoid air cells are clear. The lung apices are clear. The patient is edentulous in the maxilla. There are dental caries and periapic al lucencies in posterior right mandibular teeth. Some of the teeth have been removed. Mild Centrilob ular emphysema. Minor cervical spondylosis. There is a 1.4 cm low-density left thyroid nodule on seri es 2, image 25. IMPRESSION: 1. Widely patent arteries in the head and neck without large vessel occlusion, significant stenosis A VM, aneurysm, or dissection. 2. Mild emphysema. 3. There is a 1.4 cm low-density left thyroid nodule. If clinically indicated, this could be further evaluated with nonemergent / outpatient thyroid ultrasound if clinically indicated. 4. Dental caries and periapical lucencies in posterior right mandibular teeth.
== END 2024-11-17 20:15 | disposition left against medical advice (07) ==
LOC: ER 15:46
DX: M54.2 Cervicalgia (principal); D69.6 Thrombocytopenia, unspecified; E87.6 Hypokalemia; R53.1 Weakness; F10.939 Alcohol use, unspecified with withdrawal, unspecified; F12.90 Cannabis use, unspecified, uncomplicated; Z86.73 Personal history of transient ischemic attack (TIA), and cerebral infarction without residual deficits; Y90.9 Presence of alcohol in blood, level not specified
CPT/HCPCS: 36415; 70450; 70496; 70498; 71045; 80048; 80076; 80305; 80320; 82948; 83735; 85025; 85610; 85730; 93005; 96365; 96366; 96375; 99291; J1885; J3360; J3411; J3480; J3490; J7030; Q9967

== ENCOUNTER 2025-01-17 14:10 | Inpatient (IN) | payer MEDICAID ==
[~2025-01-17] VITALS: Ht 182.9 cm; Wt 107.4 kg
[2025-01-17 15:26] LABS: MEAN PLATELET VOLUME 7.5 FL (7.4-10.4); RED CELL DISTRIBUTION WIDTH 15.7 % (11.5-14.5)
[2025-01-17 15:27] LABS: LEUKOCYTE ESTERASE ,URINE NEGATIVE (Neg); NITRITES, URINE NEGATIVE (Neg); OCCULT BLOOD,URINE NEGATIVE (Neg)
[2025-01-17 15:34] LABS: UA COLLECTION TYPE CLN CATCH MIDSTREAM
[2025-01-17 15:44] LABS: URINE AMPHETAMINE SCREEN NEGATIVE (Neg); URINE BARBITUATE SCREEN NEGATIVE (Neg); URINE BENZODIAZEPINES SCREEN NEGATIVE (Neg); URINE CANNABINOID SCREEN NEGATIVE (Neg); URINE COCAINE SCREEN NEGATIVE (Neg); URINE METHADONE SCREEN NEGATIVE (Neg); URINE OPIATE SCREEN NEGATIVE (Neg); URINE PHENCYCLIDINE SCREEN NEGATIVE (Neg)
[2025-01-17 15:49] LABS: CREATININE 0.51 MG/DL (0.60-1.10); TOTAL CARBON DIOXIDE 27.4 MMOL/L (24-32); eCRCL 184 ML/MIN; eGFR > 90 ML/MIN
[2025-01-17 15:51] LABS: ETHANOL 378 MG/DL (<10)
--- NOTE | 2025-01-17 16:04 | Physician Documentation ---
History of Present Illness ~ Chief Complaint: Mental Health Eval Stated Complaint: SI Time Seen by MD: 14:37 Primary Medical Doctor: NONE Source: patient, family Mode of Arrival: POV Exam Limitations: no limitations HPI 54-year-old male who is here due to thoughts of suicide. Patient reported to his daughter this morning that he not only has thoughts of suicide but he has a plan in his plan would be to hang himself outside is door. Daughter reports that he does have a history of depression and currently is not on any medications. Patient has been admitted on a mental health hold in the past for suicidal thoughts but this was about 15 years ago. Patient has been sober but did drank alcohol this morning. No other illicit drug use. Medication Reconciliation Allergies: Coded Allergies: No Known Allergies (Unverified , 01/17/25) Miscellaneous Medications Home Med List (No Home Medications), (Reported) Past Medical History Past Medical History: CVA/TIA/Stroke, Chronic Back Pain, *PSYCH* Past Surgical History: orthopedic surgeries, other Patient History: Patient reports no known family medical history. Alcohol Use: Abuse Drug Use: marijuana Lives with: Family Lives In: Home Review of Systems All Other Systems at this time: Reviewed and Negative Physical Exam Vital Signs: Temperature: 97.0, Source: Temporal, Heart Rate: 125, Respiratory Rate: 17, BP: 167/107, Pulse Oximetry: 94, Weight: 107.400 Oxygen Flow Rate: 0 Physical Exam GENERAL: Alert, no acute distress. HEENT: NCAT, EOMI, PERRL, normal oropharynx, moist oral mucosa. NECK: Supple, trachea midline. CARDIAC: Regular rate and rhythm, no murmurs, rubs, or gallops. Equal distal pulses. No lower extremity edema, cap refill less than 2 seconds. RESPIRATORY: Equal breath sounds, clear to auscultation bilaterally, no respiratory distress. GASTROINTESTINAL: Non distended, soft, nontender, No guarding or rebound. MUSCULOSKELETAL: Normal range of motion, nontender, no swelling. Normal gait. NEUROLOGICAL: Awake, alert, and oriented x 3. SKIN: Warm/dry, no pallor, no rash. PSYCH: Alert and appropriate. Affect congruent with mood. Speech is clear. Good eye contact. Progress Results/Orders Results/Orders Orders - SUELLEN STEARNS Med Rec (01/17/25 14:52) 1799.11 (01/17/25 14:52) Close Observation Level (01/17/25 14:52) Covid19 Binax Poc Result Entry (01/17/25 14:52) Substance Use Navigator (01/17/25 14:52) Regular Diet (01/17/25 Dinner) Potassium Cl 40meq/1/2ns 520ml ([place] (01/17/25 16:00) Observation Status Start (01/17/25 15:58) Page Hospitalist (01/17/25 15:58) Completed Orders - SUELLEN STEARNS Cbc/Diff (01/17/25 14:52) Urinalysis (01/17/25 14:52) Drug Screen, Urine (01/17/25 14:52) Ethanol (01/17/25 14:52) TSH (01/17/25 14:52) BMP (01/17/25 14:52) Man Diff (01/17/25 15:11) Potassium Cl Sr Tablet (K-Dur Tablet) (01/17/25 16:00) MG (01/17/25 15:58) Stat Ekg (01/17/25 15:58) Medications Received in ER Medications (Trade) Dose Ordered Sig/Kendal Route PRN Reason Start Time Stop Time Status Last Admin Dose Admin (K-DUR tablet) 10 meq ONCE ONCE PO 01/17/25 16:00 01/17/25 16:01 DC 01/17/25 16:12 10 MEQ Potassium Chloride 520 ml @ 130 mls/hr ONCE ONCE IV 01/17/25 16:00 01/17/25 19:59 01/17/25 16:29 130 MLS/HR Vital Signs 01/17/25 01/17/25 01/17/25 14:17 14:33 16:38 Temp 97.0 Pulse 125 96 Resp 16 17 12 B/P (MAP) 167/107 143/94 (110) Pulse Ox 94 92 O2 Flow Rate 0 Laboratory Tests Test 01/17/25 15:07 01/17/25 15:08 01/17/25 15:11 SARS-CoV-2 Antigen (Rapid) Negative Urine Specimen Description Cln catch midstream Urine Color Yellow Urine Clarity Clear Urine pH 7.0 Urine Specific [place] <=1.005 Urine Protein Negative Urine Glucose (UA) Negative Urine Ketones Negative Urine Occult Blood Negative Urine Nitrite Negative Urine Bilirubin Negative Urine Urobilinogen 2.0 H Urine Leukocyte Esterase Negative Volume Urine Centrifuged 10 ml Urine Comment Urine Opiates Screen Negative Urine Methadone Screen Negative Urine Fentanyl Screen Negative Urine Barbiturates Screen Negative Urine Phencyclidine Screen Negative Urine Amphetamines Screen Negative Urine Benzodiazepines Screen Negative Urine Cocaine Screen Negative Urine Cannabinoids Screen Negative Drug Screen Comment White Blood Count 4.1 L Red Blood Count 4.13 L Hemoglobin 14.4 Hematocrit 42.3 Mean Corpuscular Volume 102.5 H Mean Corpuscular Hemoglobin 34.8 H Mean Corpuscular Hemoglobin Concent 34.0 Red Cell Distribution Width 15.7 H Platelet Count 31 *L Mean Platelet Volume 7.5 Neutrophils (%) (Auto) 30.9 L Lymphocytes (%) (Auto) 54.4 H Monocytes (%) (Auto) 11.2 Eosinophils (%) (Auto) 1.6 Basophils (%) (Auto) 1.9 H Neutrophils # (Auto) 1.3 L Lymphocytes # (Auto) 2.2 Monocytes # (Auto) 0.5 Eosinophils # (Auto) 0.1 Basophils # (Auto) 0.1 CBC Comment Differential Total Cells Counted 100 Neutrophils % (Manual) 31.0 L Lymphocytes % (Manual) 58.0 H Monocytes % (Manual) 9.0 Eosinophils % (Manual) 2.0 Platelet Estimate Decreased Red Blood Cell Morphology Perf Basophilic Stippling Macrocytosis 1+ Target Cells Few Sodium Level 140 Potassium Level 2.9 *L Chloride Level 104 Carbon Dioxide Level 27.4 Anion Gap 9 Blood Urea Nitrogen 6 L Creatinine 0.51 L Estimated GFR/1.73 m2 > 90 BUN/Creatinine Ratio 11.8 Glucose Level 90 Calcium Level 7.8 L Magnesium Level 1.6 Albumin 3.1 L Thyroid Stimulating Hormone (TSH) 1.32 Chemistry Comments Ethyl Alcohol Level 378 H Medical Decision Making Differential Dx:Considerations: Include: Alcohol abuse, Anxiety, Bipolar disorder, Conversion disorder, Depression, Encephaloathy, Homicidal, Panic disorder, Personality disorder, Schizophrenia, Substance abuse, Suicidal Departure Time of Disposition: 16:03 Disposition: 30 STILL A PATIENT Admitted to Inpatient Unit: to hospitalist Impression: Primary Impression: Suicidal ideation Additional Impressions: Hypokalemia Thrombocytopenia Alcoholism Condition: Fair Discharge Instructions: Medical Screening Exam Referrals: NO PRIMARY CARE PROVIDER (PCP) Education Educated: Patient Educated regarding: diagnosis, treatment, need for follow up Signature Scribe Signature: x Attestation: SUELLEN Rodriguez Jan 17, 2025 16:04
[2025-01-17 16:06] LABS: EOSINOPHILS % (MANUAL) 2.0 % (0-6); LYMPHOCYTES % (MANUAL) 58.0 % (21-51); MONOCYTES % (MANUAL) 9.0 % (2-12); NEUTROPHILS % (MANUAL) 31.0 % (42-75)
--- NOTE | 2025-01-17 16:09 | ELECTROCARDIOGRAPH REPORT ---
[facility] Test Date: 2025-01-17 Test Time: 16:07:35 Pat Name: STEVEN DEUTSCH Department: [id number] Room: ED 16 Gender: M [employer] Design Engineer: : 1970 Requested By: SUELLEN STEARNS Order Number: [id number] Reading MD: Dr. Vipul Herbert Measurements Intervals [place] Rate: 102 P: 44 [place]: 191 QRS: 18 QRSD: 93 T: 53 QT: 387 QTc: 505 Interpretive Statements Sinus tachycardia Sinus pause Low voltage, precordial leads Probable anteroseptal infarct, old Prolonged QT interval Electronically Signed On 01-17-2025 18:16:[address] Vipul Herbert Please click the below link to view image of tracing.
[2025-01-17] MEDS: potassium Cl 20 mEq SR tablet PO ONE (16:12)
[2025-01-17 16:19] LABS: PLATELET ESTIMATE DECREASED
[2025-01-17] MEDS: potassium Cl 40MEQ/1/2NS 520ml 520 ML IV ONE (16:29)
[2025-01-17] MEDS ORDERED: mag hydrox/Alum hydrox/simeth 30ml oral suspension PO PRN (16:50)
[2025-01-17] MEDS ORDERED: potassium Cl 20 mEq SR tablet PO PRN (16:50)
[2025-01-17] MEDS ORDERED: magnesium sulf-water 2g/50mL 50 ML IV PRN (16:50)
[2025-01-17] MEDS ORDERED: magnesium sulf-water 4G/100mL 100 ML IV PRN (16:50)
[2025-01-17] MEDS ORDERED: potassium Cl 40MEQ/1/2NS 520ml 520 ML IV PRN (16:50)
[2025-01-17] MEDS ORDERED: magnesium hydroxide 30ml (MOM) UD suspension PO PRN (16:50)
[2025-01-17] MEDS ORDERED: haloperidol lactate 5mg/ml inj IM PRN (16:55)
[2025-01-17] MEDS ORDERED: dextrose 50%-water 50ml dispensing syringe IV PRN (16:55)
--- NOTE | 2025-01-17 17:02 | HISTORY AND PHYSICAL-Residence ---
History & Physical Providers to CC Resident Creating Document: DOUGHERTYSANDERJORJEMAYA ~ History of Present Illness Primary Medical Doctor: NONE Reason for Admit\Complaint: Suicidal Ideation, hypokalemia and thrombocytopenia History of Present Illness This is a 54 year old male with history of anxiety,depression, suicidal ideation,hallucinations presented to ER for suicidal ideation and planning to hang himself on rope.Patient consumes alcohol and consumed vodka 1 pint this morning.He had hallucinations 2 weeks ago. which are not present now.In addition to that patient was found to have hypokalemia and thrombocytopenia which prompt us to admit in Ortho floor. He denies any bleeding,abdominal pain,shortness of breath,chest pain,nausea and vomitting. Sitter is ordered. Patient does not have any primary care doctor. Allergies: Coded Allergies: No Known Allergies (Unverified , 01/17/25) Home Medications Home Medications Active Reported No Home Medications (Home Med List) Each Past Medical History Past Medical History Anxiety Depression 20 years ago admitted for mental health problem. Past Surgical History Surgical History Comment 6 knee surgeries Family History Family History: Patient reports no known family medical history. Past Social History Social History Comment Patient drinks alcohol and have been drinking alcohol since 30 years half a gallon,from 5-6 months he is consuming vodka daily half -1 pint daily. patient says he keep himself 24 days off and on for vodka Smokes 10 cigarrates a day and have been smoking since age 17. No illicit drug abuse history. Lives in home with roommate. Smoking: Cigarettes Alcohol Use: Abuse Drug Use: None, Marijuana Lives with: Family, Other Lives In: Home ROS All Other Systems: Reviewed and Negative Constitutional: Denies: no symptoms reported, see HPI, chills, diaphoresis, fever, malaise, weakness, other Psychiatric: Reports: depression, anxiety, suicidal Exam Vitals: Vital Signs Date Time Temp Pulse Resp B/P (MAP) Pulse Ox O2 Delivery O2 Flow Rate FiO2 01/17/25 16:38 96 12 143/94 (110) 92 01/17/25 14:17 97.0 0 General: General: Awake and Alert, no acute distress.patients looks toxicated from alcohol HEENT: Conjunctiva pink, Sclera clear, Mucus Membranes moist. Neck: Supple without masses and tenderness. Resp: Unlabored. Lungs clear to auscultation bilaterally. Heart: Regular Rate and rhythm, normal S1 and S2 without murmur, rub or gallop. Abdomen: Soft and non tender no organomegaly Extremities: No cyanosis,clubbing or edema. Skin: Warm and Dry. Psychiatric: anxious, hypothymic,no evidence of hallucination Diagnostic Data Last Recorded Lab Results: 01/17/25 1511 01/17/25 1511 Advance Care Planning Advanced Care plannin - 30 Minutes (I spent 17 minutes discussing various resuctitative measures with patient and he choose to be full code.) Additional Plan Assessment This is a 54 year old male with history of anxiety,depression, suicidal ideation,hallucinations presented to ER for suicidal ideation and planning to hang himself on rope. In addition to that patient was found to have hypokalemia and thrombocytopenia which prompt us to admit in Ortho floor. Suicidal ideation/Suicidal plan Patient is put on 1799 code by ER. Ordered [facility] will then evaluate patient for psychiatric illness. Hypokalemia K is 2.9 Replacement as per protocol. He was adminstered K 10meq in ER Monitor K daily. Moderate Thromboctyopenia possibly due to liver disease Platelets are 31 No signs of bleeding No transfusion need at this moment. Ordered PT/INR Ordered AST/ALT Patient will need outpatient followup . Alcohol Abuse Substance use navigator [employer] consulted Mild alcohol withdrawl protocol ordered. DVT Prophylaxis: SCD until full ambulatory. Code Status: Full Code Date of Service: Jan 17, 2025 Billing Provider: JEWELL LAMBERT MD Common Visit Codes: 24241-GQTCUGA INP/OBS CARE (HIGH) Secondary Visit Codes: 83495-[id number] CARE PLAN 30 MINUTES JORJE DOUGHERTY, MAYA Jan 17, 2025 17:02 JEWELL LAMBERT MD Jan 18, 2025 21:37
[2025-01-17 19:08] LABS: INR 1.1 INR
[2025-01-17] MEDS: docusate sod 100mg capsule PO SCH (20:00)
[2025-01-17] MEDS: diazepam inj 5 MG/ML inj. IV SCH (20:00)
[2025-01-17] MEDS: K and/or MAG REPLACEMENT MC SCH (20:00)
[2025-01-17] MEDS: ondansetron/PF 4mg/2ml inj IV PRN (21:32)
[2025-01-17] MEDS: thiamine 100mg/ml 2ml inj. IV SCH (21:37)
[2025-01-17] MEDS: potassium Cl 20 mEq SR tablet PO PRN (22:05)
[2025-01-17] MEDS: diazepam inj 5 MG/ML inj. IV STA (23:12)
[2025-01-18] MEDS: ondansetron/PF 4mg/2ml inj IV PRN (01:29)
[2025-01-18 03:14] LABS: MEAN PLATELET VOLUME 7.6 FL (7.4-10.4); RED CELL DISTRIBUTION WIDTH 15.4 % (11.5-14.5)
[2025-01-18 03:28] LABS: CREATININE 0.45 MG/DL (0.60-1.10); TOTAL CARBON DIOXIDE 25.3 MMOL/L (24-32); eCRCL 208 ML/MIN; eGFR > 90 ML/MIN
[2025-01-18] MEDS: metoclopramide 5 mg/ml inj IV ONE (04:45)
[2025-01-18 07:30] VITALS: BP 157/100; PULSE 100; RESP 16; TEMP 97.8; O2SAT 92
[2025-01-18] MEDS: magnesium Cl slow-release 64mg tablet PO PRN (07:37)
[2025-01-18 08:42] VITALS: BP 161/106; PULSE 95
[2025-01-18] MEDS ORDERED: diazepam inj 5 MG/ML inj. IV ONE (09:35)
[2025-01-18] MEDS: normal saline 1000ml 1,000 ML IV SCH (10:05)
[2025-01-18] MEDS: diazepam inj 5 MG/ML inj. IV ONE ×2 (10:09→10:13)
[2025-01-18 11:55] VITALS: BP 149/103; PULSE 97; RESP 14; TEMP 98.4; O2SAT 93
[2025-01-18] MEDS: folic acid 1mg/0.2ml inj IV SCH (12:12)
--- NOTE | 2025-01-18 13:56 | PROGRESS NOTE- Residence ---
Progress Note - Resident Providers to CC Resident Creating Document: JORJE DOUGHERTY RES ~ Antibiotic Timeout Antibiotic Ordered?: No Subjective Patient was seen at bedside, patient looks anxious,he was sweating,tremoring and had 2 diarhheal episodes one in night and one in morning. Patient also says that he is not suicidal anymore.In addition to that patient also requested nictotine patch and patient states that he is feeling alot much better. Objective Vital Signs Date Time Temp Pulse Resp B/P (MAP) Pulse Ox O2 Delivery O2 Flow Rate FiO2 01/18/25 11:55 98.4 97 14 149/103 (118) 93 Room Air 01/18/25 06:34 0 Result Diagram: 01/18/2530601/18/25 030 General: Awake and Alert, no acute distress. HEENT: Conjunctiva pink, Sclera clear, Mucus Membranes moist. Neck: Supple without masses and tenderness. Resp: Unlabored. Lungs clear to auscultation bilaterally. Heart: Regular Rate and rhythm, normal S1 and S2 without murmur, rub or gallop. Abdomen: Soft and non tender no organomegaly Extremities: No cyanosis,clubbing or edema. Skin: Warm and Dry. Psychiatric: anxious, hypothymic,no evidence of hallucination. RN CLINICAL: No gross motor or sensory abnormalities.Tremors noted in hands. Coagulation Studies Laboratory Tests Test 01/17/25 15:11 Prothrombin Time 11.2 SECONDS (9.0-12.0) INR International Normalized Ratio 1.1 INR Coagulation Comments Assessment Assessment This is a 54 year old male with history of anxiety,depression, suicidal ideation,hallucinations presented to ER for suicidal ideation and planning to hang himself on rope.Patient consumes alcohol and consumed vodka 1 pint this morning.He had hallucinations 2 weeks ago. In addition to that patient was found to have hypokalemia and thrombocytopenia which prompt us to admit in Ortho floor. Today patient says he is not suicidal anymore. Patient hypokalemia improved from 2.9 to 3.9 and platelets dropped from 31 to 25. Patient is also experiencing alcohol withdrawl symptoms tremors,sweating,anxiety,diarhea and hypertension. Plan Plan Assessment This is a 54 year old male with history of anxiety,depression, suicidal ideation,hallucinations presented to ER for suicidal ideation and planning to hang himself on rope. In addition to that patient was found to have hypokalemia and thrombocytopenia which prompt us to admit in Ortho floor. Alcohol withdrawl Placed on mild alcohol withdrawl protocol. Valium 10 mg was adminstered for tremors. CIWA Score is 15. Substance use navigator Senior Search Marketing Analyst consulted. Hypertension Patient is started on amlodipine 10 mg once daily. Monitor blood pressure. Suicidal ideation/Suicidal plan Patient is put on 1799 code. Ordered [facility] will then evaluate patient further Thromboctyopenia possiblilty of direct alcohol damage to bone marrow vs Liver disease. Platelets are 25 No signs of bleeding No transfusion needed at this moment. PT 11.2 INR 1.1 AST 61 ALT 25 Monitor platelet closely. Macrocytic Anemia/Pancytopenia possible due to direct alcohol damage to bone marrow/Vit b12 deficiency/Hypothyroidism Wbc: 3.8 Rbc: 4.01 Platelets: 25 MCV: 102.5 Vit b12 ordered. Repeat CBC ordered TSH ordered Disposition: We will continue to monitor patients for now. Date of Service: Jan 18, 2025 Billing Provider: JEWELL LAMBERT MD Common Visit Codes: [id number] INP/OBS CARE(HIGH) JORJE DOUGHERTY, RES Jan 18, 2025 13:56 JEWELL LAMBERT MD Jan 18, 2025 21:39
[2025-01-18 15:55] LABS: % IRON SATURATION 93.0 % (11-46)
[2025-01-18 18:00] VITALS: BP 137/94; PULSE 68; RESP 19; TEMP 97.4; O2SAT 94
[2025-01-18 18:30] VITALS: RESP 16; O2SAT 94; O2SAT 96
[2025-01-18 19:00] VITALS: BP 137/94; PULSE 68; RESP 19; TEMP 97.4; O2SAT 94
[2025-01-19 05:00] VITALS: BP 137/93; PULSE 85; RESP 16; TEMP 97.9; O2SAT 93
[2025-01-19 06:37] LABS: MEAN PLATELET VOLUME 8.9 FL (7.4-10.4); RED CELL DISTRIBUTION WIDTH 15.4 % (11.5-14.5)
[2025-01-19 07:17] LABS: BASOPHILS % (MANUAL) 1.0 % (0-1); CREATININE 0.48 MG/DL (0.60-1.10); EOSINOPHILS % (MANUAL) 2.0 % (0-6); LYMPHOCYTES % (MANUAL) 30.0 % (21-51); MONOCYTES % (MANUAL) 8.0 % (2-12); NEUTROPHILS % (MANUAL) 59.0 % (42-75); PLATELET ESTIMATE DECREASED; TOTAL CARBON DIOXIDE 25.5 MMOL/L (24-32); eCRCL 195 ML/MIN; eGFR > 90 ML/MIN
[2025-01-19] MEDS: nicotine 14mg patch - 24hr TD SCH (08:44)
[2025-01-19 10:00] VITALS: BP 133/82; PULSE 86; RESP 14; TEMP 98.3; O2SAT 96
[2025-01-19] MEDS ORDERED: FOLI1TAB27 PO (14:36)
[2025-01-19] MEDS ORDERED: thiamine tablet PO (14:36)
[2025-01-19] MEDS ORDERED: NICO-631 TD (14:36)
--- NOTE | 2025-01-19 18:45 | DISCHARGE SUMMARY-Residence ---
Discharge Summary Providers to CC Resident Creating Document: JORJE DOUGHERTY RES ~ Discharge Summary Admission Diagnosis: suicidal ideation, severe hypokalemia, thrombocytopenia Hospital Course DATE OF ADMISSION: 01/17/2025 DATE OF DISCHARGE: 01/19/2025 Labs on Discharge Day WBC 2.7 RBC 3.94 Hemoglobin: 13.7 Platelets count 26 K is 3.8 On 01/19/2025 Urine Toxicology Positive for Ethyl Alcohol Discharge Diagnosis\Comment: Thrombocytopenia Hypokalemia Alcohol abuse Suicidal Ideation Operations\Procedures: none Consultants: none Complications: none Condition on DC: Stable New Medications: Folic Acid* (Folic Acid*) Y Tab 1 MG PO DAILY for 30 Days, #30 TAB Nicotine 14 MG Patch* (Habitrol 14 MG Patch*) 1 Each Patch.td24 1 PATCH TD DAILY for 28 Days, #28 PATCH [thiamine tablet] () 100 MG TABLET 100 MG PO DAILY for 30 Days, #30 Continued Medications: Home Med List (No Home Medications) Each Discharge Summary: History of Present Illness This is a 54 year old male with history of anxiety,depression, suicidal ideation,hallucinations presented to ER for suicidal ideation and planning to hang himself on rope. In addition to that patient was found to have hypokalemia and thrombocytopenia which prompt us to admit in Ortho floor. Sitter was ordered. Hospital Course This patient came to hospital because of suicidal ideation and planning to hang himself on rope. He was found to have hypokalemia and thrombocytopenia which prompt us to admit him on ortho floors. K was 2.9,initially he was adminstered 10 meq in ER and later was placed on replacement protocol,potassium improved to normal level. and for thrombocytopenia we monitored platelets and no signs of active bleeding were noted. Patient was intoxicated with alcohol so he was put on alcohol withdrawl protocol and he also developed alcohol withdrawl symptoms tremors, anxiety and was treate d according to alcohol withdrawl protocol. Substance abuse navigator and social work instructor were also consulted. In addition to that patient had suicidal ideation and plan so he was put on 179 code and sitter was arranged. and according to [facility] Per [facility] patient does not meet 5150 hold criteria, no SI, okay to discharge home with followup psychiatrist appointments.Handout for follow up given to patient with psychiatry resources. Physical Examination General: Awake and Alert, no acute distress.patients looks toxicated from alcohol HEENT: Conjunctiva pink, Sclera clear, Mucus Membranes moist. Neck: Supple without masses and tenderness. Resp: Unlabored. Lungs clear to auscultation bilaterally. Heart: Regular Rate and rhythm, normal S1 and S2 without murmur, rub or gallop. Abdomen: Soft and non tender no organomegaly Extremities: No cyanosis,clubbing or edema. Skin: Warm and Dry. Psychiatric: Anxious Vital Signs on Discharge Day Date Time Temp Pulse Resp B/P (MAP) Pulse Ox O2 Delivery O2 Flow Rate FiO2 01/19/25 10:00 98.3 86 14 133/82 (99) 96 Room Air 01/18/25 19:00 0.0 01/18/25 18:30 21 Discharge Medications Folic acid 1 mg PO daily for 30 days Nicotine 14 mg patch(habitrol 14 mg patch) 1 Patch TD daily for 28 days Thiamine tablet 100 mg tablet 100 mg PO daily for 30 days Continued Medications: Home Med List (No Home Medications) Each Discharge Instructions Follow up with your Primary care Provider in 1 week Get a referal for instructor knitting from your PCP Consult [employer] History Teacher Repeat CBC,CMP in 1 week Consult with a psychiatrist Call 911 if you have any emergency *Problems/Diagnosis: (1) Hypokalemia Status: Resolved (2) Thrombocytopenia Status: Chronic (3) Suicidal ideation Status: Chronic (4) Alcoholism Status: Chronic (5) Alcohol use disorder Status: Chronic Total Time Spent on D/C: > 30 Minutes Addendum thrombocytopenia poss 2 to bone marrow suppression 2 to alcohol use Date of Service: Jan 19, 2025 Billing Provider: JEWELL LAMBERT MD Common Visit Codes: 92301-NUT/OBS DISCH DAY >30min JORJE ODUGHERTY, RES Jan 19, 2025 18:36 JEWELL LAMBERT MD Jan 19, 2025 22:08
== END 2025-01-19 15:17 | disposition home or self-care (01) | DRG 425 ==
LOC: ER 14:10 → ED HOLD 16:51 → EDBEDREQ 01-18 06:04 → ORTHO 4S 01-18 07:15
PROVIDERS: ADMIT Internal Medicine; ATTEND Internal Medicine
DX: E87.6 Hypokalemia (principal); D69.6 Thrombocytopenia, unspecified; R45.851 Suicidal ideations; Z20.822 Contact with and (suspected) exposure to COVID-19; F41.9 Anxiety disorder, unspecified; F32.A Depression, unspecified; I10 Essential (primary) hypertension; F10.10 Alcohol abuse, uncomplicated; M54.9 Dorsalgia, unspecified; G89.29 Other chronic pain
CPT/HCPCS: 36415; 80048; 80053; 80076; 80305; 80320; 81003; 82607; 82948; 83540; 83550; 83735; 84132; 84443; 85007; 85025; 85610; 87081; 87811; 93005; 96365; 99285; A4615; G0378; J2060; J2405; J2765; J3360; J3411; J3480; J3490; J7030; J7050